=== PATIENT | male | born 1970 | race Caucasian/White ===

== ENCOUNTER → 2020-12-09 | Outpatient (CLI) | payer BC ==
[~2020-12-09] MED LIST: AMPDEX10; ARIPIPRAZOLE10 MG; ARIPIPRAZOLE20 MG PO; ATEN50 PO; Amphetamine Sal20 MG PO; Amphetamine Sal30 MG PO; BELPHEELB PO; Buspirone HCl15 MG PO; CAND16; CEPH500 PO; Clonazepam1 MG; Coumadin5 MG PO; DESV50 PO; DESVENLAFAXINE100 M3 PO; DOCU100 PO; FLUO20 PO; HYDROCHLOROTH12.5 MG PO; LEVSOD112 PO; LEVSOD175; LOSARTAN POTAS100 M1 PO; MAGNESIUM OXID500 MG PO; NEURONTIN300 MG PO; Norco 5-325 Ta1 EACH PO; OMEP20ER PO; OXYCODONE-ACET1 EAC2; OXYMORPHONE HCL5 MG; PERCOCET 10-321 EAC4 PO; POTCHL20ER PO; QUETIAPINE FUM100 MG PO; QUETIAPINE FUM300 MG; SYNTHROID PO; TAMSULOSIN HCL0.4 M1 PO; TOPI100 PO; Toprol Xl50 MG PO; VISBIOME 112.51 EACH PO; VITAMIN D5000 UNIT PO; Vistaril50 MG PO; Vitamin B-121000 MCG PO
[2020-12-09 11:34] LABS: BASOPHILS ABSOLUTE AUTO 0.08 K/mm3 (0.00-0.23); BASOPHILS PERCENT AUTO 0 % (0-2); Hematocrit 38.4 % (37.0-53.0); Hemoglobin 13.4 g/dL (13.5-17.5); LYMPHOCYTES PERCENT AUTO 4 % (21-46); MONOCYTES ABSOLUTE AUTO 2.18 K/mm3 (0.16-1.47); MONOCYTES PERCENT AUTO 9 % (4-13); Mean Corpuscular HGB 31.7 pg (26.0-34.0); Mean Corpuscular HGB Conc 34.9 g/dL (31.5-36.5); Mean Corpuscular Volume 91 fL (80-100); Mean Platelet Volume 10.7 fL (9.1-12.4); Platelet Count 322 K/mm3 (150-400); RDW Standard Deviation 46.4 fL (35.1-46.3); Red Blood Cell Count 4.23 M/mm3 (4.30-5.90); White Blood Cell Count 23.58 K/mm3 (4.00-11.30)
[2020-12-09 11:43] LABS: EOSINOPHILS ABSOLUTE AUTO 0.09 K/mm3 (0.00-0.68); EOSINOPHILS PERCENT AUTO 0 % (0-6); IMMATURE GRAN ABSOLUTE AUTO 1.15 K/mm3 (0.00-0.10); IMMATURE GRAN PERCENT AUTO 5 % (0-1); NEUTROPHILS ABSOLUTE AUTO 19.18 K/mm3 (1.96-9.15); NEUTROPHILS PERCENT AUTO 81 % (41-73)
[2020-12-09 11:59] LABS: Alanine Aminotransfer (ALT/SGP 31 U/L (12-78); Albumin, Blood 2.5 g/dL (3.4-5.0); Albumin/Globulin Ratio 0.5 (0.8-1.8); Alk Phos 46 U/L (40-126); Anion Gap 18 mmol/L (6-16); Aspartate Aminotrans (AST/SGOT 18 U/L (12-37); Bilirubin, Total 1.6 mg/dL (0.1-1.0); Blood Urea Nitrogen 18 mg/dL (8-24); Bun/Creatinine Ratio 7.1 (12.0-20.0); CO2, Blood 20 mmol/L (21-32); Calcium, Blood 9.1 mg/dL (8.5-10.1); Chloride, Blood 98 mmol/L (98-108); Creatinine, Blood 2.55 mg/dL (0.60-1.20); Globulin, Blood 4.8 g/dL (2.2-4.0); Glomerular Filtration Rate 27 (60-); Glucose, Blood 241 mg/dL (70-99); Potassium, Blood 3.3 mmol/L (3.5-5.5); Sodium, Blood 136 mmol/L (136-145); Thyroid Stimulating Hormone 4.808 uIU/mL (0.360-4.800); Total Protein, Blood 7.3 g/dL (6.4-8.2); Troponin I <0.017 ng/mL (0.000-0.040)
== END | disposition home or self-care (01) ==
LOC: LAB SHORT 10:39 → LAB EV 10:39
PROVIDERS: Physician Assistant
DX: L03.317 Cellulitis of buttock (principal); R00.0 Tachycardia, unspecified; R06.00 Dyspnea, unspecified
CPT/HCPCS: 80053; 83880; 84443; 84484; 85025; 85379; 87040; 87070; 87075; 87077; 87147; 87186; 87205

== ENCOUNTER 2020-12-10 00:42 | Inpatient (IN) | payer MEDICARE, BC ==
[~2020-12-10] VITALS: Ht 185.4 cm; Wt 171.1 kg
[~2020-12-10 00:42] MED LIST changes: -Amphetamine Sal20 MG PO; -Amphetamine Sal30 MG PO; -Buspirone HCl15 MG PO; -CEPH500 PO; -DESVENLAFAXINE100 M3 PO; -HYDROCHLOROTH12.5 MG PO; -MAGNESIUM OXID500 MG PO; -NEURONTIN300 MG PO; -OMEP20ER PO; -OXYCODONE-ACET1 EAC2; -PERCOCET 10-321 EAC4 PO; -POTCHL20ER PO; -SYNTHROID PO; -TAMSULOSIN HCL0.4 M1 PO; -TOPI100 PO; -Toprol Xl50 MG PO; -VISBIOME 112.51 EACH PO; -VITAMIN D5000 UNIT PO; -Vistaril50 MG PO; -Vitamin B-121000 MCG PO
[2020-12-10 02:11] LABS: BASOPHILS ABSOLUTE AUTO 0.15 K/mm3 (0.00-0.23); BASOPHILS PERCENT AUTO 1 % (0-2); Hematocrit 38.7 % (37.0-53.0); Hemoglobin 13.7 g/dL (13.5-17.5); LYMPHOCYTES ABSOLUTE AUTO 1.55 K/mm3 (0.84-5.20); LYMPHOCYTES PERCENT AUTO 6 % (21-46); MONOCYTES ABSOLUTE AUTO 2.41 K/mm3 (0.16-1.47); MONOCYTES PERCENT AUTO 9 % (4-13); Mean Corpuscular HGB 31.8 pg (26.0-34.0); Mean Corpuscular HGB Conc 35.4 g/dL (31.5-36.5); Mean Corpuscular Volume 90 fL (80-100); Mean Platelet Volume 10.7 fL (9.1-12.4); NRBC ABSOLUTE 0.03 K/mm3 (0.00-0.02); NRBC Auto 0.1 /100 WBC (0.0-0.2); Platelet Count 364 K/mm3 (150-400); RDW Standard Deviation 46.3 fL (35.1-46.3); Red Blood Cell Count 4.31 M/mm3 (4.30-5.90); White Blood Cell Count 25.98 K/mm3 (4.00-11.30)
[2020-12-10 02:12] LABS: EOSINOPHILS ABSOLUTE AUTO 0.02 K/mm3 (0.00-0.68); EOSINOPHILS PERCENT AUTO 0 % (0-6); IMMATURE GRAN ABSOLUTE AUTO 0.28 K/mm3 (0.00-0.10); IMMATURE GRAN PERCENT AUTO 1 % (0-1); NEUTROPHILS ABSOLUTE AUTO 21.57 K/mm3 (1.96-9.15); NEUTROPHILS PERCENT AUTO 83 % (41-73)
[2020-12-10] MEDS ORDERED: NEURONTIN300 MG PO ×2 (02:19)
[2020-12-10] MEDS ORDERED: OMEP20ER PO ×2 (02:20)
[2020-12-10] MEDS ORDERED: OXYCODONE-ACET1 EAC2 ×2 (02:20)
[2020-12-10] MEDS ORDERED: TOPI100 PO ×2 (02:21)
[2020-12-10] MEDS ORDERED: TAMSULOSIN HCL0.4 M1 PO ×2 (02:21)
[2020-12-10] MEDS ORDERED: Buspirone HCl15 MG PO ×2 (02:22)
[2020-12-10] MEDS ORDERED: Vistaril50 MG PO ×2 (02:22)
[2020-12-10] MEDS ORDERED: Toprol Xl50 MG PO ×2 (02:23)
[2020-12-10 02:32] LABS: Alanine Aminotransfer (ALT/SGP 28 U/L (12-78); Albumin, Blood 2.5 g/dL (3.4-5.0); Albumin/Globulin Ratio 0.4 (0.8-1.8); Alk Phos 54 U/L (50-136); Anion Gap 12 mmol/L (6-16); Aspartate Aminotrans (AST/SGOT 22 U/L (12-37); Bilirubin, Total 0.9 mg/dL (0.1-1.0); Blood Urea Nitrogen 31 mg/dL (8-24); Bun/Creatinine Ratio 7.9 (12.0-20.0); CO2, Blood 20 mmol/L (21-32); Calcium, Blood 8.6 mg/dL (8.5-10.1); Chloride, Blood 101 mmol/L (98-108); Creatinine, Blood 3.92 mg/dL (0.60-1.20); Globulin, Blood 5.6 g/dL (2.2-4.0); Glomerular Filtration Rate 18 (60-); Glucose, Blood 157 mg/dL (70-99); Potassium, Blood 3.3 mmol/L (3.5-5.5); Sodium, Blood 133 mmol/L (136-145); Total Protein, Blood 8.1 g/dL (6.4-8.2); Troponin I <0.015 ng/mL (0.000-0.040)
[2020-12-10 02:37] LABS: BAND PERCENT MAN 7 % (0-8); BASOPHILS PERCENT MAN 0 % (0-2); EOSINOPHILS PERCENT MAN 0 % (0-6); LYMPHOCYTES ABSOLUTE MAN 2.07 K/mm3 (0.84-5.20); LYMPHOCYTES PERCENT MAN 8 % (21-46); METAMYELOCYTE ABSOLUTE MAN 0.51 K/mm3 (0.00-0.00); METAMYELOCYTE PERCENT MAN 2 % (0-0); MONOCYTES ABSOLUTE MAN 1.81 K/mm3 (0.16-1.47); MONOCYTES PERCENT MAN 7 % (4-13); NEUTROPHILS ABSOLUTE MAN 21.56 K/mm3 (1.96-9.15); SEG NEUTROPHILS PERCENT MAN 76 % (41-73); TOTAL CELLS COUNTED 100
[2020-12-10 03:00] LABS: International Normalized Ratio 1.21; Prothrombin Time Results 12.8 Sec (9.7-11.5)
[2020-12-10 04:28] LABS: CPK Creatine Kinase 118 U/L (39-308); Free Thyroxine 1.79 ng/dL (0.70-1.60)
--- NOTE | 2020-12-10 06:30 | NUR ---
PT TO ICU ROOM 7 AT 0610. PT INTUBATED AND SEDATED (NOT WELL). PT MOVED TO ICU BED. EXCESS LINENS REMOVED, WOUND TO LEFT BUTTOCK PHOTOGRAPHED. PT HAD MEDIUM BM, PERICARE DONE, DRY FLOW PLACED. PT HAS CL TO RIGHT IJ WITH MULT MEDS INFUSING. DRESSING LOOSE AND MOIST, SITE WNL. PT HAS VANCO INFUSING, PROPOFOL AT 20MCG/KG (INCREASED TO 40MCG/KG), NS BOLUS VIA PRESSURE BAG, HEPARIN @ 16/UNITS/HR, BICARB AT 100ML/HR, LEVO AVAIL FOR HYPOTENSION. MULT SCAB TO SKIN. TEMP BAINS DRAINING URINE. BILATERAL SOFT WRIST RESTRAINTS SECURE. SL TO RIGHT AC. VENT SETTINGS AC14/500/5/60. WILL REPORT TO ONCOMING SHIFT.
--- NOTE | 2020-12-10 07:10 | NUR ---
ASSUMED CARE FROM [facility]. AT BEDSIDE. PT ON VENTILATOR AC 14/500/5/60%. RT-JUAN ANTONIO IN ROOM. CENTRAL LINE WITH LEVOPHED INFUSING, PROPOFOL AND HEPARIN. SEE FLOW SHEET FOR TITRATIONS. SODIUM BICARB AT 100ML/HR. BOLUS NS INFUSING IN RIGHT AC. PATIENT SKIN MOIST/DIAPHORETIC. PT EASILY AGITATED, PROPOFOL TITRATE BAINS DRAINING TO GRAVITY, OG TO LIS WITH NO VISIBLE OUTPUT. FEET WITHOUT PALPABLE PULSES BUT WARM TO THE TOUCH AND GOOD CAP REFILL. WOUNDS NOTED TO LOWER ABDOMEN/UPPER PANNUS. THIGHS WITH BLISTER/ACNE. WILL COMPLETE ADMISSION ASSESSMENT AND TREAT PATIENT INDICATED.
[2020-12-10] MEDS ORDERED: LEVSOD112 PO ×2 (07:22)
--- NOTE | 2020-12-10 08:30 | NUR ---
HERE TO SEE PT. PT TURNED VIEWED BUTTOCKS WOUND. RED/ANGRY/SEEPING PINK TINGED RETURN, EDEMA THROUGHOUT REGION SURROUNDING THE AREA.
[2020-12-10 08:45] LABS: Source, Urine Catheter
[2020-12-10 08:48] LABS: Appearance, Urine Cloudy (Clear); Bilirubin, Urine Neg (Neg); Blood, Urine 4+ (Neg); Color, Urine Yellow (P-Yellow); Glucose Qualitative, Urine Neg (Neg); Ketones, Urine Neg (Neg); Leukocyte Esterase, Urine Neg (Neg); Nitrite, Urine Neg (Neg); Protein, Urine 3+ (Neg); Specific Gravity, Urine 1.015 (1.003-1.022); Urobilinogen, Urine NORM (Normal)
[2020-12-10 08:56] LABS: Squamous Epithelial Cells Few /hpf (Few); White Blood Cells, Urine 0-2 /hpf (0-5)
[2020-12-10 08:57] LABS: Amorphous Mod (0-Heavy); Bacteria Few /hpf
--- NOTE | 2020-12-10 09:00 | NUR ---
HERE, ASSESSING PT, FURTHER ORDERS OBTAINED. PT UP TO LEVOPHED 20MCG PER KG TO KEEP MAP>60, BP ASSESSED ON ALL LIMBS WITH .
[2020-12-10 09:49] LABS: Base Excess Venous -10.4 mmol/L; Bicarbonate Venous 16.5 mmol/L (24.0-30.0); PCO2 Venous 40.5 mmHg (38-42); PO2 Venous 75.9 mmHg (38-42)
[2020-12-10 09:50] LABS: pH Blood Venous 7.23 (7.34-7.37)
--- NOTE | 2020-12-10 11:00 | NUR ---
HERE, PREPARING TO DO I&D OF LEFT GLUTEAL FOLD WOUND. ECHO BEING FINISHED. PT MEDICATED AND TURNED WITH 4 PERSON ASSIST. PERFORMED I&D OF WOUND, CULTURE OBTAINED. PT TOLERATED PROCEDURE WELL.
--- NOTE | 2020-12-10 12:33 | NUR ---
HAVING A HARD TIME GETTING AN ADEQUATE BLOOD PRESSURE SINCE THE PROCEDURE. PT TITRATED UP ON LEVO AND EPINEPHRINE. MEDICATED WITH FENTANYL, EFFORTS TO DECREASE PROPOFOL BUT PT VERY AGITATED, TRYING TO TALK OVER THE ETT, PULLING AT RESTRAINTS, BREATHING RAPIDLY, ATTEMPTS TO REASSURE PATIENT. PROPOFOL BACK ON AT 40MCG/KG/MIN, FENTANYL GIVEN AGAIN PER NOV. VERBAL REASSURANCE GIVEN. PT CONTINUES TO BE SIGNIFICANTLY DIAPHORETIC, CENTRAL LINE DRESSING CHANGED. STAT LOCK REPLACED FOR BAINS. GOWN REMOVED AND TOWEL PLACED FOR MODESTY.
--- NOTE | 2020-12-10 12:50 | NUR ---
ECHOCARDIOGRAM COMPLETED
--- NOTE | 2020-12-10 13:00 | NUR ---
ATTEMPT TO PLACE ARTERIAL LINE IN THE RIGHT GROIN UNSUCCESSFUL. PT TOLERATED WELL, AFTER RECEIVING 2 MG VERSED AND PRECEDEX GTT STARTED.
--- NOTE | 2020-12-10 14:19 | NUR ---
WHEN PT OFF SEDATION, VERY AGITATED, BUT ANSWERS APPROPRIATELY. DID NOD THAT HIS BUTTOCKS WAS HURTING AND ALSO THAT HIS BACK WAS HURTING. ATTEMPTING TO CALM AND REASSURE IS NOT WELL RECEIVED, THUS NEEDING THE MEDICATION.
[2020-12-10 15:08] LABS: Bicarbonate Venous 15.3 mmol/L (24.0-30.0); PCO2 Venous 39.9 mmHg (38-42); PO2 Venous 50.4 mmHg (38-42); pH Blood Venous 7.21 (7.34-7.37)
--- NOTE | 2020-12-10 16:15 | NUR ---
IN TO SEE PATIENT, RECHECK WOUND. PT'S LEFT LEG RAISED AND WOUND INSPECTED. PATIENT UNCOMFORTABLE AND MEDICATED WITH FENTANYL 50MCG.
--- NOTE | 2020-12-10 17:44 | NUR ---
KASEY CONTINUES ON THE VENTILATOR, SPONTANEOUS SETTING. 40% FIO2. VASOPRESSIN @ 0.04U/MIN, PRECEDEX @ 0.7MCG/KG/HR, LEVOPHED @ 20MCG/MIN, EPINEPHRINE ON SB, PROPOFOL @ 30MCG/KG/MIN, NS @ 150ML/HR, NAHCO3 @ 150ML/HR, CALCIUM GLUCONATE @ 60ML/HR, ZOSYN @ 12.5ML/HR. OG TO LIS WITH NO VISIBLE OUTPUT, BAINS TO GRAVITY DRAINAGE WITH <300ML THIS SHIFT, AWARE. LOWER EXTREMITIES COOL, CAP REFILL <3 SEC. PT CONTINUES WITH 99.7 TEMP PER BAINS AND EPISODES OF SEVERE DIAPHORESIS. HAS BEEN WITH HIM THE LAST COUPLE OF HOURS, HE RESTS WELL BETWEEN BEING BOTHERED. GLUTEAL WOUND CONTINUES WITH GAUZE IN PLACE, TO BE CHANGED THIS EVENING AROUND 2330. ABDOMINAL WOUNDS UNCHANGED. WILL REPORT TO NEXT SHIFT WHEN ABLE.
--- NOTE | 2020-12-10 19:30 | NUR ---
ASSUMED PT CARE REPORT AND BEDSIDE ROUNDING WITH ANDREW CANALES AT 1910, ASSUMED PT CARE. PT REMAINS INTUBATED AND SEDATED, RESPONSIVE TO SOME VERBAL STIMULI. PT HAS CENTRAL LINE TO RIGHT IJ WITH LEVOPHED INF @ 20MCG, PROPOFOL @ 35MCG, VASO @ 0.04, BICARB @ 150, NS @ 150. PT HAS 20G SL TO RIGH AC, SITE WNL, DRESSING C/D/I. OG TO LIS, MINIMAL OUTPUT. LUNG SOUNDS CLEAR/DIMINISHED. VENT SPONTANEOUS RATE 20/500/5/40. T.BAINS DRAINING BANG COLORED URINE. BILATERAL SOFT WRIST RESTRAINTS SECURE. PT SKIN DIAPHORETIC, DRESSING TO LEFT BUTTOCK I&D TODAY, DRESSING INTACT. SORES TO ABD. SEE FULL SHIFT ASSESSMENT.
[2020-12-10 20:15] LABS: Bicarbonate Venous 16.6 mmol/L (24.0-30.0); PCO2 Venous 36.8 mmHg (38-42); PO2 Venous 44.2 mmHg (38-42); pH Blood Venous 7.27 (7.34-7.37)
[2020-12-10 20:16] LABS: Base Excess Venous -10.2 mmol/L
[2020-12-11 04:30] LABS: Base Excess Venous -6.8 mmol/L; Bicarbonate Venous 18.9 mmol/L (24.0-30.0); PCO2 Venous 39.1 mmHg (38-42); pH Blood Venous 7.31 (7.34-7.37)
[2020-12-11 04:38] LABS: BASOPHILS ABSOLUTE AUTO 0.09 K/mm3 (0.00-0.23); BASOPHILS PERCENT AUTO 0 % (0-2); EOSINOPHILS PERCENT AUTO 0 % (0-6); Hematocrit 32.6 % (37.0-53.0); Hemoglobin 11.2 g/dL (13.5-17.5); IMMATURE GRAN ABSOLUTE AUTO 0.46 K/mm3 (0.00-0.10); IMMATURE GRAN PERCENT AUTO 2 % (0-1); LYMPHOCYTES ABSOLUTE AUTO 0.67 K/mm3 (0.84-5.20); LYMPHOCYTES PERCENT AUTO 3 % (21-46); MONOCYTES ABSOLUTE AUTO 2.18 K/mm3 (0.16-1.47); MONOCYTES PERCENT AUTO 9 % (4-13); Mean Corpuscular HGB 31.8 pg (26.0-34.0); Mean Corpuscular HGB Conc 34.4 g/dL (31.5-36.5); Mean Corpuscular Volume 93 fL (80-100); Mean Platelet Volume 10.5 fL (9.1-12.4); NEUTROPHILS ABSOLUTE AUTO 19.76 K/mm3 (1.96-9.15); NEUTROPHILS PERCENT AUTO 85 % (41-73); NRBC ABSOLUTE 0.03 K/mm3 (0.00-0.02); NRBC Auto 0.1 /100 WBC (0.0-0.2); Platelet Count 351 K/mm3 (150-400); RDW Coefficient Variation 14.9 % (11.7-14.2); RDW Standard Deviation 50.7 fL (35.1-46.3); Red Blood Cell Count 3.52 M/mm3 (4.30-5.90); White Blood Cell Count 23.16 K/mm3 (4.00-11.30)
[2020-12-11 04:58] LABS: Alanine Aminotransfer (ALT/SGP 36 U/L (12-78); Albumin, Blood 1.9 g/dL (3.4-5.0); Albumin/Globulin Ratio 0.4 (0.8-1.8); Alk Phos 50 U/L (50-136); Anion Gap 14 mmol/L (6-16); Aspartate Aminotrans (AST/SGOT 46 U/L (12-37); Bilirubin, Total 0.7 mg/dL (0.1-1.0); Blood Urea Nitrogen 37 mg/dL (8-24); Bun/Creatinine Ratio 7.8 (12.0-20.0); CO2, Blood 19 mmol/L (21-32); Calcium, Blood 6.7 mg/dL (8.5-10.1); Chloride, Blood 102 mmol/L (98-108); Creatinine, Blood 4.74 mg/dL (0.60-1.20); Globulin, Blood 4.4 g/dL (2.2-4.0); Glomerular Filtration Rate 14 (60-); Glucose, Blood 312 mg/dL (70-99); Magnesium, Blood 1.7 mg/dL (1.6-2.4); Phosphorus, Blood 4.2 mg/dL (2.5-4.9); Potassium, Blood 3.5 mmol/L (3.5-5.5); Sodium, Blood 135 mmol/L (136-145); Total Protein, Blood 6.3 g/dL (6.4-8.2); Vancomycin, Random 15.8 ug/mL
--- NOTE | 2020-12-11 06:28 | NUR ---
SHIFT SUMMARY PT REMAINS INTUBATED AND SEDATED. WAKES TO NOXIOUS STIMULI AND OFTEN WAKES WITH NO STIMULI. PT HAS CENTRAL LINE TO RIGHT IJ WITH PRECEDEX INF @ 0.7MCG, PROPOFOL INF @ 55MCG, LEVOPHED INF @ 5MCG, NS INF @ KVO, BICARB INF @ 150. SITE WNL, DRESSING C/D/I AFTER CHANGING IT THIS AM. SL 20G TO RIGHT AC, SITE WNL, DRESSING C/D AND LOOSE DUE TO DIAPHORESIS. TEMP BAINS DRAINGING BANG COLORED URINE. SOFT BILATERAL WRIST RESTRAINTS SECURE. OG CLAMPED POST MEDICATIONS. PT TOLERATING VENT SETTINGS SPONTANEOUS PS 12, PEEP 5, 30% FIO2. SATS >92%. WOUND PACKING REMOVED AROUND 2330 DURING BEDBATH, AREA CLEANED, SALINE MOIST GAUZE PLACED TO WOUND, ABD IN PLACE. WILL REPORT TO ONCOMING RN.
--- NOTE | 2020-12-11 18:29 | NUR ---
KASEY HAS CONTINUED ON SPONTANEOUS ON THE VENTILATOR. HE HAS DECREASED TO 8 PS AND IS ON 30% FI02. HE HAS BEEN OFF OF PRESSORS SINCE 1454. HE CONTINUES ON PRECEDEX, INCREASED TO 1.4MCG/KG/HR. PROPOFOL AT 50MCG/KG/MIN. HE HAS HAD MOMENTS OF COMPLETE ALERTNESS, WHERE HE SITS UP IN THE BED AND MOVES HIS LEGS, PULLS AT THE RESTRAINTS. HE CALMS WITH VOICE REASSURANCE AND OCCASIONAL FENTANYL DOSES. HE WILL THEN BE TOTALLY UNAROUSABLE TO VOICE. HE ANSWERS WITH HEAD NODS AND SHAKES WHEN HE HAS THESE MOMENTS OF ALERTNESS. WAS HERE FOR VISITATION, ENCOURAGED BY 'S PROGRESS REPORT TO HER. HE WAS STARTED ON TUBE FEEDINGS VIA OG WITH VITAL HIGH PROTEIN @ 25ML/HR. HIS FIRST RESIDUAL CHECK WAS ZERO. HE HAD GOOD URINE OUTPUT THIS SHIFT. TEMPERATURE HAS REMAINED ELEVATED ALL THROUGHOUT THE SHIFT, HE WAS MEDICATED X 2 WITH TYLENOL. HE IS STARTING TO GET PUFFY IN THE HANDS/LOWER EXTREMITIES. WILL CONTINUE TO ASSESS.
--- NOTE | 2020-12-11 20:44 | NUR ---
CARE ASSUMED 1900 Pt intubated and sedated. Propofol 50 MCG/KG/MIN and Precedex 1.4 MCG/KG/HR infusing via central line to RIJ. Pt moves all extrems and has period of increased agitation during oral/turns. Pulling on restraints and attempting to situp in bed, treated per emar. Unable to be calmed with verbal reassurance. Pt unable to follow commands at this time. Vent settings of PS 10/5, FIO2 30%, SPO2 > 90%. Small amount of thick white secreations from oral suctioning. Tube feed at goal of 25 ml/hr, residual of 0. Temp thorpe in place, draining to gravity, 100 ml of yellow/cloudy urine. NSR. Pt has elevated temp 102.7, fan and ice packs in place, will treat per emar.
[2020-12-12 03:41] LABS: BASOPHILS ABSOLUTE AUTO 0.04 K/mm3 (0.00-0.23); BASOPHILS PERCENT AUTO 0 % (0-2); EOSINOPHILS PERCENT AUTO 0 % (0-6); Hematocrit 31.7 % (37.0-53.0); Hemoglobin 10.8 g/dL (13.5-17.5); IMMATURE GRAN ABSOLUTE AUTO 0.92 K/mm3 (0.00-0.10); IMMATURE GRAN PERCENT AUTO 5 % (0-1); LYMPHOCYTES ABSOLUTE AUTO 1.41 K/mm3 (0.84-5.20); LYMPHOCYTES PERCENT AUTO 8 % (21-46); MONOCYTES PERCENT AUTO 7 % (4-13); Mean Corpuscular HGB 32.1 pg (26.0-34.0); Mean Corpuscular HGB Conc 34.1 g/dL (31.5-36.5); Mean Corpuscular Volume 94 fL (80-100); Mean Platelet Volume 10.8 fL (9.1-12.4); NEUTROPHILS ABSOLUTE AUTO 15.24 K/mm3 (1.96-9.15); NEUTROPHILS PERCENT AUTO 81 % (41-73); NRBC ABSOLUTE 0.03 K/mm3 (0.00-0.02); NRBC Auto 0.2 /100 WBC (0.0-0.2); Platelet Count 311 K/mm3 (150-400); RDW Coefficient Variation 14.7 % (11.7-14.2); RDW Standard Deviation 51.2 fL (35.1-46.3); Red Blood Cell Count 3.36 M/mm3 (4.30-5.90); White Blood Cell Count 18.91 K/mm3 (4.00-11.30)
--- NOTE | 2020-12-12 03:57 | NUR ---
Update- Increased agitation Patient with periods of increased agitation, pulling on restraints, attempting to sit-up in bed, and "chewing" on tube. Attempted to reorient patient without success. Patient opens eyes but not tracking or following commands. Moving all extrems. Treated per emar and Precedex and Propofol titrated as well. Increased RR (30-40's) and SPO2 decreased to 86% (100% FIO2 given via vent and oral care provided) during periods of agitation. Unable to decrease sedation due to increased agitation. During 0 patient treated with Sublimaze 50 mcg prior to dressing change- L gluteal dressing change complete, sterile 4X4 moistened with normal saline packing placed in wound bed. Secured in place with foam dressing.
[2020-12-12 04:01] LABS: Anion Gap 11 mmol/L (6-16); Blood Urea Nitrogen 54 mg/dL (8-24); Bun/Creatinine Ratio 9.6 (12.0-20.0); CO2, Blood 22 mmol/L (21-32); Calcium, Blood 6.8 mg/dL (8.5-10.1); Chloride, Blood 102 mmol/L (98-108); Creatinine, Blood 5.65 mg/dL (0.60-1.20); Glomerular Filtration Rate 11 (60-); Glucose, Blood 232 mg/dL (70-99); Magnesium, Blood 2.5 mg/dL (1.6-2.4); Phosphorus, Blood 5.7 mg/dL (2.5-4.9); Potassium, Blood 3.5 mmol/L (3.5-5.5); Sodium, Blood 135 mmol/L (136-145); Vancomycin, Random 22.9 ug/mL
--- NOTE | 2020-12-12 05:14 | NUR ---
Shift Summary Pt intubated and sedated. Propofol GTT 60 mcg/kg/min and Precedex 1.3 mcg/kg/hr. Pt easily agitated and unable to follow commands. Opens eyes and moves all extrems but not tracking. Vent settings PS 10/5, FIO2 40%, SPO2 > 90%. Continues to have small thick white secreations. L gluteal wound dressing C/D/I. Temp thorpe (102 TEMP) in place draining to gravity, 500 ml of dark cloudy yellow urine. NSR. Will report to oncomign shift.
--- NOTE | 2020-12-12 08:23 | NUR ---
CARE OF PT ASSUMED AT 0700. PT SEDATED ON PROPOFOL AT 60MCG AND PRECEDEX AT 1.3MCG FOR MECH VENT. SPONT/PS10/40%/5. SATS>90%. LUNGS CLEAR T/O, DIMINISHED TO BASES. PT GRIMACES W NOXIOUS TIMULI/ORAL CARE. SMALL AMT OF ESPINOSA SPUTUM SX'D FROM ETT. TF IS AT GOAL; NO RESIDUALS. PT CREATINE HAS INCREASED, PT MAKING SUFFICIANT U/O. BP IS STABLE, SLIGHTLY HYPOTENSIVE AT TIMES W MAP >65.
--- NOTE | 2020-12-12 09:31 | NUR ---
DR FLORENCE IN TO SEE PT. DRSG TO LEFT GLUTEAL BY DR FLORENCE. PT DOES NOT REQUIRE FURTHER DEBRIDEMENT AT THIS TIME PER AYO DONALDSON TO BE CHANGED DAILY. WOUND TO BE PACKED WITH ALGENATE (WHOLE PACKAGE) AND COVERED W CLOVER. GREEN SHEET CHANGED, BACK WASHED. DR AGUIAR GIVEN UPDATE. TYLENOL GIVEN FOR TEMP 102.0
--- NOTE | 2020-12-12 10:49 | NUR ---
PROPOFOL DECREASED TO 50MCG, WITHIN MINUTES PT WOKE UP AND SAT UP PARTIALLY IN BED. PT DID NOT FOLLOW DIRECTIONS. RESP INCREASED TO HIGH 40'S AND SATS DROPPED TO 89%. AFTER 5 ADDITIONAL MIN. PT FELL BACK TO SLEEP, RESP AND SATS IMPROVED.
--- NOTE | 2020-12-12 12:44 | NUR ---
PT DIAPHORETIC, TEMP DOWN TO 101.3 FROM 102. RESP 30-40, PT'S EYES OPENED FURTHER (TYPICALLY ALWAYS SLIGHTLY OPEN D/T GRAVES DISEASE ISSUES), PT COUGHING ON VENT. FENT 50MCG GIVEN. PROPOFOL THEN DECREASED TO 45MCG FROM 50MCG. PRECEDEX REMAINS AT 1.4MCG. GOLD LIKE RING REMOVED FROM LEFT RING FINGER HAND IS VERY SWOLLEN. RING PLACED IN SPEC. CUP; WILL GIVE TO . NEPHROLOGY TO BE CONSULTED. NO OTHER CHANGES FROM LAST ASSESSMENT.
--- NOTE | 2020-12-12 14:41 | NUR ---
PT'S AT BEDSIDE, GIVEN PT'S RING, GIVEN UPDATE
--- NOTE | 2020-12-12 15:07 | NUR ---
DR ALTAMIRANO IN TO SEE PT, FULL UPDATE GIVEN. PRECEDEX TO BE TITRATED OFF IF TOLERATED. PRECEDEX DECREASED TO 0.6MCG. DR ALTAMIRANO UPDATED PT'S .
--- NOTE | 2020-12-12 15:44 | NUR ---
PT MORE AWAKE SINCE PRECEDEX DECREASED. PT MORE RESTLESS, RESP RATE INCREASED TO 40'S, ABLE TO CALM PT SOMEWHAT WITH VERBAL SOOTHING FROM . PT UNABLE TO FOLLOW SIMPLE COMMANDS.
[2020-12-12 16:24] LABS: Source, Urine Catheter
[2020-12-12 16:30] LABS: Bilirubin, Urine Neg (Neg); Blood, Urine 5+ (Neg); Glucose Qualitative, Urine Neg (Neg); Ketones, Urine Neg (Neg); Leukocyte Esterase, Urine Neg (Neg); Nitrite, Urine Neg (Neg); Protein, Urine 2+ (Neg); Specific Gravity, Urine 1.015 (1.003-1.022); Urobilinogen, Urine NORM (Normal)
[2020-12-12 16:37] LABS: Appearance, Urine Hazy (Clear); Color, Urine Yellow (P-Yellow)
[2020-12-12 16:37] LABS: Albumin, Blood 1.8 g/dL (3.4-5.0); Anion Gap 14 mmol/L (6-16); Blood Urea Nitrogen 60 mg/dL (8-24); Bun/Creatinine Ratio 10.4 (12.0-20.0); CO2, Blood 20 mmol/L (21-32); Calcium, Blood 6.9 mg/dL (8.5-10.1); Chloride, Blood 102 mmol/L (98-108); Creatinine, Blood 5.75 mg/dL (0.60-1.20); Glomerular Filtration Rate 11 (60-); Glucose, Blood 225 mg/dL (70-99); Phosphorus, Blood 6.8 mg/dL (2.5-4.9); Potassium, Blood 3.4 mmol/L (3.5-5.5); Sodium, Blood 136 mmol/L (136-145)
[2020-12-12 16:39] LABS: Amorphous Mod (0-Heavy); Bacteria Mod /hpf; Squamous Epithelial Cells Few /hpf (Few)
[2020-12-12 16:40] LABS: Granular Casts 0-2 /lpf (0)
--- NOTE | 2020-12-12 17:52 | NUR ---
PT MORE AWAKE; ABLE TO FOLLOW SIMPLE COMMANDS AND NODS HEAD APPROPRIATELY TO QUESTIONS. NODS YES TO PAIN. PRECEDEX PLACED ON STANDBY. PT COUGHING/GAGING ON VENT. ATIVAN 2MG /FENT 50MCG GIVEN FOR ANXIETY AND PAIN. PT HAD GOOD U/O TODAY/1250CC. CALL PLACED TO DR URIAS TO GIVE LAB RESULTS; SHE IS TO CALL BACK. CA CL 2GM GIVEN PER DR ALTAMIRANO.
--- NOTE | 2020-12-12 21:19 | NUR ---
Assumed Care 1900 Pt intubated and sedated. Propofol increased to 55 mcg/kg/min. Pt with increased agitation during care, coughing, grimacing, and unable to follow commands. Pt hypertensive at this time, see flow sheet. Treated per emar with Ativan as well. Vent settings PS 10/5, FIO2 35%, SPO2 > 90%. TF at goal, no residual. Polanco draining to gravity, yellow/clear urine. NSR.
--- NOTE | 2020-12-13 00:06 | NUR ---
Provider Call Dr. Sarmiento called in regards to patients elevated SBP (180's). New orders recieved to start patients home hypertension mediation, see emar.
[2020-12-13 03:28] LABS: BASOPHILS ABSOLUTE AUTO 0.07 K/mm3 (0.00-0.23); BASOPHILS PERCENT AUTO 1 % (0-2); EOSINOPHILS ABSOLUTE AUTO 0.02 K/mm3 (0.00-0.68); EOSINOPHILS PERCENT AUTO 0 % (0-6); Hematocrit 31.1 % (37.0-53.0); Hemoglobin 10.5 g/dL (13.5-17.5); IMMATURE GRAN ABSOLUTE AUTO 1.18 K/mm3 (0.00-0.10); IMMATURE GRAN PERCENT AUTO 8 % (0-1); LYMPHOCYTES ABSOLUTE AUTO 0.99 K/mm3 (0.84-5.20); LYMPHOCYTES PERCENT AUTO 7 % (21-46); MONOCYTES ABSOLUTE AUTO 1.15 K/mm3 (0.16-1.47); MONOCYTES PERCENT AUTO 8 % (4-13); Mean Corpuscular HGB 31.3 pg (26.0-34.0); Mean Corpuscular HGB Conc 33.8 g/dL (31.5-36.5); Mean Corpuscular Volume 93 fL (80-100); Mean Platelet Volume 10.5 fL (9.1-12.4); NEUTROPHILS ABSOLUTE AUTO 11.11 K/mm3 (1.96-9.15); NEUTROPHILS PERCENT AUTO 77 % (41-73); Platelet Count 327 K/mm3 (150-400); RDW Coefficient Variation 14.5 % (11.7-14.2); RDW Standard Deviation 49.1 fL (35.1-46.3); Red Blood Cell Count 3.35 M/mm3 (4.30-5.90); White Blood Cell Count 14.52 K/mm3 (4.00-11.30)
[2020-12-13 03:48] LABS: Alanine Aminotransfer (ALT/SGP 49 U/L (12-78); Albumin, Blood 1.7 g/dL (3.4-5.0); Albumin/Globulin Ratio 0.4 (0.8-1.8); Alk Phos 43 U/L (50-136); Anion Gap 12 mmol/L (6-16); Aspartate Aminotrans (AST/SGOT 70 U/L (12-37); Bilirubin, Total 0.6 mg/dL (0.1-1.0); Blood Urea Nitrogen 66 mg/dL (8-24); Bun/Creatinine Ratio 11.3 (12.0-20.0); CO2, Blood 23 mmol/L (21-32); Calcium, Blood 7.7 mg/dL (8.5-10.1); Chloride, Blood 105 mmol/L (98-108); Creatinine, Blood 5.83 mg/dL (0.60-1.20); Globulin, Blood 4.4 g/dL (2.2-4.0); Glomerular Filtration Rate 11 (60-); Glucose, Blood 199 mg/dL (70-99); Magnesium, Blood 2.5 mg/dL (1.6-2.4); Phosphorus, Blood 7.2 mg/dL (2.5-4.9); Potassium, Blood 3.1 mmol/L (3.5-5.5); Sodium, Blood 140 mmol/L (136-145); Total Protein, Blood 6.1 g/dL (6.4-8.2); Vancomycin, Random 17.2 ug/mL
[2020-12-13 03:55] LABS: BAND PERCENT MAN 10 % (0-8); BASOPHILS PERCENT MAN 0 % (0-2); EOSINOPHILS PERCENT MAN 0 % (0-6); LYMPHOCYTES ABSOLUTE MAN 0.14 K/mm3 (0.84-5.20); LYMPHOCYTES PERCENT MAN 1 % (21-46); METAMYELOCYTE ABSOLUTE MAN 0.43 K/mm3 (0.00-0.00); METAMYELOCYTE PERCENT MAN 3 % (0-0); MONOCYTES ABSOLUTE MAN 0.87 K/mm3 (0.16-1.47); MONOCYTES PERCENT MAN 6 % (4-13); NEUTROPHILS ABSOLUTE MAN 13.06 K/mm3 (1.96-9.15); SEG NEUTROPHILS PERCENT MAN 80 % (41-73); TOTAL CELLS COUNTED 100
--- NOTE | 2020-12-13 05:21 | NUR ---
Sedation Vacation Patients Propofol titerated to 35 mcg/kg/min. Pt able to follow commands, squeezes hands (strong plug grower bilaterally), attempting to open eyes. Unable to nod head yes/no to simple questions. Increased SBP 190'S and RR 20's, HR 89-90's, Pt grimacing and coughing. Thick white oral secreations and thick valenzuela secreations from ETT suction. Propofol restarted.
[2020-12-13 05:24] LABS: PCO2 Arterial 40.9 mmHg (35-45); PO2 Arterial 77.4 mmHg (80-100); pH Blood Arterial 7.32 (7.35-7.45)
--- NOTE | 2020-12-13 05:57 | NUR ---
Shift Summary Pt sedated with Propofol 55 mcg/kg/min, infusing via CL in RIJ. Vent settings of PS 10/5, 30%, SPO2 > 90%. Pt grimaces when care is provided. Pt continues to be hypertensive, SBP 150-170'S, treated per emar. TF at goal, 0 of resiudal. Temp thorpe in place, draining to gravity, (2200 urine output, yellow/clear). NSR. Will report to oncoming shift. K (3.1) replaced per electrolyte protocol.
--- NOTE | 2020-12-13 09:22 | NUR ---
PT SEDATED ON PROPOFOL AT 55MCG FOR MECH VENT. PRECEDEX HAS BEEN OFF SINCE YESTERDAY. PT GRIMACES W ORAL CARE, MARISCAL. LUNGS SLIGHTLY COARSE TO RUL. PT HAS INCREASED SECRETIONS TODAY FROM ETT; THICK, CREAM TO ESPINOSA. INCREASED ORAL SECRETIONS WELL. PT HAD VERY LARGE BM, DURING TURN PT DESATURATED TO 80%, IT TOOK PT ABOUT 7MIN TO RECOVER SATS >90% ON 100% FIO2. FIO2 NOW AT 30%. SATS 91%. DRSG TO LEFT GLUTEAL WOUND CHANGED. SKIN AREA AROUND WOUND PEELING. PT TOLERATING TUBE FEEDINGS;NO RESIDUAL. U/O REMAINS GOOD DESPITE HIGH CREATINE. DR Chung AGUIAR AND DR Damian AGUIAR IN TO SEE PT THIS AM; FULL UPDATE GIVEN. PT RECEIVING 2ND BAG OF K+; K+ LAB TO BE REPEATED 4 HRS AFTER BAG INFUSED. PT RECIEVING VANCO THIS AM. PT TEMP MUCH IMPROVED TODAY AT 99.0. PT HYPERTENSIVE. LOPRESSOR 25MG DOWN PT STARTED.
--- NOTE | 2020-12-13 10:52 | NUR ---
DR ALTAMIRANO IN TO SEE PT; FULL UPDATE GIVEN. SPUTUM TO BE SENT. PROPOFOL DECREASED TO 35MCG TO START SED VAC. PT WILL REMAIN INTUBATED TODAY PER DR ALTAMIRANO.
--- NOTE | 2020-12-13 11:25 | NUR ---
PROPOFOL DECREASED TO 10MCG. PT WOKE UP WITHIN 5MIN. RESP 40'S, HYPERTENSIVE W SBP >180. PT CALM, ABLE TO INTENSIVE CARE NURSE HAND TO COMMAND. ABLE TO NOD HIS HEAD APPROPRIATELY TO QUESTIONS. DENIES C/O PAIN AT THIS TIME. CENTRAL LINE DRSG CHANGED TO RIJ. PROPOFOL RESUMED AT 40MCG.
--- NOTE | 2020-12-13 12:28 | NUR ---
IVY ORDERED Q6 FOR HTN.
--- NOTE | 2020-12-13 14:13 | NUR ---
DR URIAS IN TO SEE PT. RP SENT TO LAB. PT'S AT BEDSIDE; FULL UPDATE GIVEN.
[2020-12-13 14:48] LABS: Albumin, Blood 1.8 g/dL (3.4-5.0); Anion Gap 12 mmol/L (6-16); Blood Urea Nitrogen 69 mg/dL (8-24); Bun/Creatinine Ratio 12.7 (12.0-20.0); CO2, Blood 22 mmol/L (21-32); Calcium, Blood 7.9 mg/dL (8.5-10.1); Chloride, Blood 107 mmol/L (98-108); Creatinine, Blood 5.42 mg/dL (0.60-1.20); Glomerular Filtration Rate 12 (60-); Glucose, Blood 216 mg/dL (70-99); Phosphorus, Blood 6.6 mg/dL (2.5-4.9); Potassium, Blood 3.4 mmol/L (3.5-5.5); Sodium, Blood 141 mmol/L (136-145)
--- NOTE | 2020-12-13 16:12 | NUR ---
PT INCONTINENT OF LARGE LIQUID STOOL. STOOL SEEPED INTO GLUTEAL WOUND. WOUND CLEANED OUT WITH SALINE, RE-PACKED, MEPILEX PLACED OVER WOUND. RECTAL TUBE PLACED.
--- NOTE | 2020-12-13 17:58 | NUR ---
PROPOFOL AT 40MCG. FENT 50MCG, ATIVAN 2MG GIVEN FOR INCREASED RESP, AGITATION, HTN D/T AGITATION. RECTAL TUBE INTACT. PT HAD VERY GOOD U/O TODAY; ~3L. 20MEQ K+ GIVEN PT. DRSG TO GLUTEAL WOUND CHANGED TWICE (ONCE D/T STOOL). PT TOLERATING TUBE FEEDING'S W 0 RESIDUALS. FIO2 REMAINS AT 30%. PT DOES TEMP. DESATURATE W POSITION CHANGES BUT RECOVERS WITHIN 1-2MIN. MOD TO LARGE AMT OF SECRETIONS SUCTIONED FROM ETT AND MOUTH TODAY. PT'S AT [facility] FROM [phone] TODAY.
[2020-12-14 04:19] LABS: BASOPHILS ABSOLUTE AUTO 0.11 K/mm3 (0.00-0.23); BASOPHILS PERCENT AUTO 1 % (0-2); Hematocrit 33.3 % (37.0-53.0); Hemoglobin 11.4 g/dL (13.5-17.5); LYMPHOCYTES ABSOLUTE AUTO 1.26 K/mm3 (0.84-5.20); LYMPHOCYTES PERCENT AUTO 8 % (21-46); MONOCYTES ABSOLUTE AUTO 0.88 K/mm3 (0.16-1.47); MONOCYTES PERCENT AUTO 5 % (4-13); Mean Corpuscular HGB 31.3 pg (26.0-34.0); Mean Corpuscular HGB Conc 34.2 g/dL (31.5-36.5); Mean Corpuscular Volume 92 fL (80-100); Mean Platelet Volume 9.9 fL (9.1-12.4); NRBC ABSOLUTE 0.05 K/mm3 (0.00-0.02); NRBC Auto 0.3 /100 WBC (0.0-0.2); Platelet Count 408 K/mm3 (150-400); RDW Coefficient Variation 14.6 % (11.7-14.2); RDW Standard Deviation 49.8 fL (35.1-46.3); Red Blood Cell Count 3.64 M/mm3 (4.30-5.90); White Blood Cell Count 16.52 K/mm3 (4.00-11.30)
[2020-12-14 04:21] LABS: EOSINOPHILS ABSOLUTE AUTO 0.18 K/mm3 (0.00-0.68); EOSINOPHILS PERCENT AUTO 1 % (0-6); IMMATURE GRAN ABSOLUTE AUTO 2.03 K/mm3 (0.00-0.10); IMMATURE GRAN PERCENT AUTO 12 % (0-1); NEUTROPHILS ABSOLUTE AUTO 12.06 K/mm3 (1.96-9.15); NEUTROPHILS PERCENT AUTO 73 % (41-73)
[2020-12-14 04:37] LABS: Albumin, Blood 1.9 g/dL (3.4-5.0); Anion Gap 12 mmol/L (6-16); Blood Urea Nitrogen 72 mg/dL (8-24); Bun/Creatinine Ratio 14.7 (12.0-20.0); CO2, Blood 21 mmol/L (21-32); Calcium, Blood 7.9 mg/dL (8.5-10.1); Chloride, Blood 111 mmol/L (98-108); Creatinine, Blood 4.89 mg/dL (0.60-1.20); Glomerular Filtration Rate 14 (60-); Glucose, Blood 200 mg/dL (70-99); Magnesium, Blood 2.4 mg/dL (1.6-2.4); Phosphorus, Blood 4.5 mg/dL (2.5-4.9); Sodium, Blood 144 mmol/L (136-145); Vancomycin, Random 20.9 ug/mL
[2020-12-14 05:03] LABS: PCO2 Arterial 32.1 mmHg (35-45); PO2 Arterial 62.9 mmHg (80-100); pH Blood Arterial 7.42 (7.35-7.45)
[2020-12-14 05:37] LABS: BAND PERCENT MAN 3 % (0-8); BASOPHILS PERCENT MAN 0 % (0-2); EOSINOPHILS PERCENT MAN 0 % (0-6); LYMPHOCYTES ABSOLUTE MAN 1.15 K/mm3 (0.84-5.20); LYMPHOCYTES PERCENT MAN 7 % (21-46); METAMYELOCYTE ABSOLUTE MAN 0.66 K/mm3 (0.00-0.00); METAMYELOCYTE PERCENT MAN 4 % (0-0); MONOCYTES ABSOLUTE MAN 0.66 K/mm3 (0.16-1.47); MONOCYTES PERCENT MAN 4 % (4-13); NEUTROPHILS ABSOLUTE MAN 14.04 K/mm3 (1.96-9.15); SEG NEUTROPHILS PERCENT MAN 82 % (41-73); TOTAL CELLS COUNTED 100
--- NOTE | 2020-12-14 08:00 | NUR ---
ASSUMED CARE OF PT, REPORT RCV'D FROM ALLY LOZA. PT INTUBATED AND SEDATED. PT ON SPONTANEOUS VENT SETTINGS AT START OF SHIFT, SWITCHED TO A/C 16/500/5/30% D/T RR IN 40'S, HR 110'S AND HYPERTENSION. PT TOLERATING A/C WELL. PROPOFOL INFUSING AT 60 MCG/KG/MIN. PT ADEQUATELY SEDATED, WITHDRAWS FROM PAINFUL STIMULI, FAILS TO FOLLOW COMMANDS AT THIS TIME. PT CONTINUOUSLY HYPERTENSIVE WITH SYSTOLIC>200, DR. ALTAMIRANO AND DR. URIAS AWARE, MEDICATION CHANGES PLACED IN EMAR. BAINS PATENT AND DRAINING CLEAR YELLOW URINE. RECTAL TUBE PATENT BUT LEAKING, EVAN CARE PERFORMED AND BEDDING CHANGED. NEW PICTURES TAKEN OF LEFT BUTTOCK WOUND, WOUND CLEANED WITH WOUND CLEANSER, CALCIUM ALGINATE REPLACED WITH MEPILEX COVERING. PT HAS NEW RASH TO GROIN, LEFT BUTTOCK AND LEFT AXILLARY. DR. ALTAMIRANO AND DR. URIAS ASSESSED, ORDER FOR NYSTATIN CREAM PLACED. (PHOTOS IN CHART). VITAL HIGH PROTEIN @ 25 ML/HR WITH 30 ML Q4, LOW RESIDUALS. SEE FULL SHIFT ASSESSMENT.
--- NOTE | 2020-12-14 18:43 | NUR ---
SHIFT SUMMARY PT REMAINS INTUBATED AND SEDATED. VENT SETTINGS AC 16/500/5/30%. PT LIGHTLY SEDATED WITH PROPOFOL @ 50 MCG/KG/MIN. PT FOLLOWS COMMANDS TO SQUEEZE HAND, OPEN MOUTH FOR ORAL CARE AND PT ABLE TO SQUEEZE HAND IN REPONSE TO QUESTION OF PAIN. PT CONTINUES TO HAVE MODERATE AMOUNT OF CLEAR ORAL SECRETIONS AND SECRETIONS FROM ETT. PT'S HYPERTENSION IMPROVING. 2900 ML URINARY OUTPUT. SMALL AMOUNT OF WATERY BROWN STOOL IN RECTAL TUBE. TUBE FEED DECREASED TO 10 ML/HR, NO RESIDUALS. WILL REPORT TO ONCOMING NURSE.
[2020-12-15 03:59] LABS: Hematocrit 32.8 % (37.0-53.0); Hemoglobin 11.1 g/dL (13.5-17.5); Mean Corpuscular HGB 31.7 pg (26.0-34.0); Mean Corpuscular HGB Conc 33.8 g/dL (31.5-36.5); Mean Corpuscular Volume 94 fL (80-100); Platelet Count 439 K/mm3 (150-400); RDW Coefficient Variation 15.2 % (11.7-14.2); RDW Standard Deviation 51.8 fL (35.1-46.3); White Blood Cell Count 17.96 K/mm3 (4.00-11.30)
[2020-12-15 04:17] LABS: Albumin, Blood 1.9 g/dL (3.4-5.0); Anion Gap 11 mmol/L (6-16); Blood Urea Nitrogen 71 mg/dL (8-24); Bun/Creatinine Ratio 17.6 (12.0-20.0); CO2, Blood 20 mmol/L (21-32); Calcium, Blood 7.8 mg/dL (8.5-10.1); Chloride, Blood 115 mmol/L (98-108); Creatinine, Blood 4.03 mg/dL (0.60-1.20); Glomerular Filtration Rate 17 (60-); Glucose, Blood 209 mg/dL (70-99); Phosphorus, Blood 3.8 mg/dL (2.5-4.9); Sodium, Blood 146 mmol/L (136-145); Vancomycin, Random 14.4 ug/mL
[2020-12-15 04:26] LABS: BAND PERCENT MAN 17 % (0-8); BASOPHILS PERCENT MAN 0 % (0-2); EOSINOPHILS ABSOLUTE MAN 0.17 K/mm3 (0.00-0.68); EOSINOPHILS PERCENT MAN 1 % (0-6); LYMPHOCYTES ABSOLUTE MAN 0.53 K/mm3 (0.84-5.20); LYMPHOCYTES PERCENT MAN 3 % (21-46); MONOCYTES ABSOLUTE MAN 0.71 K/mm3 (0.16-1.47); MONOCYTES PERCENT MAN 4 % (4-13); MYELOCYTE ABSOLUTE MAN 0.35 K/mm3 (0.00-0.00); MYELOCYTE PERCENT MAN 2 % (0-0); NEUTROPHILS ABSOLUTE MAN 16.16 K/mm3 (1.96-9.15); SEG NEUTROPHILS PERCENT MAN 73 % (41-73); TOTAL CELLS COUNTED 100
--- NOTE | 2020-12-15 06:24 | NUR ---
SHIFT SUMMARY PATIENT SLEPT WELL THRU NIGHT. ATTEMPTED TWICE TO TURN SEDATION DOWN FROM 50 MCG/KG/HR TO 40, BOTH TIMES PT. BECAME TACHYNPIC, TACHYCARDIC, HYPERTENSIVE, INCREASED SEDATION. 02:45 GAVE FENTANYL AND ATIVAN FOR UNCONTROLLABLE AGITATION, PT. STARTED THRASHING HEAD SIDE TO SIDE, NOT FOLLOWING DIRECTIONS. OPTED NOT TO PERFORM SPONTANEOUS BREATHING TRIAL, PT. HAD PREVIOUSLY BEEN ON SPONTANEOUS FOR OVER 48 HOURS. PT. TOLERATING VENTILATOR WELL CURRENTLY. AROUND 23:[address] ALTAMIRANO FOR INCREASING RASH, CONCERNING FOR ALLERGIC REACTION. GAVE 1 DOSE 50 MG BENADRYL, REDNESS IS DECREASING IN FACE. ASSESSMENT IS CHARTED. VSS. WILL CONTINUE TO MONITOR.
--- NOTE | 2020-12-15 09:38 | NUR ---
ASSUMED CARE OF PT, REPORT RCV'D FROM ALLY LOZA. PT PLACED ON SPONTANEOUS VENTILATION THIS MORNING AT 0845, SEDATION SHUT OFF TO ASSESS EXTUBATION POSSIBILITY. AFTER 1 HR SEDATION RESTARTED AND PT SWITCHED BACK TO AC D/T AGITATION, INCREASED RR, AND COUGHING. PT CONTINUES TO HAVE COPIOUS AMOUNTS OF THICK CLEAR ORAL SECRETIONS. CURRENT VENT SETTINGS AC 16/500/5/30%. WHILE SEDATION ON STANDBY PT ABLE TO FOLLOW COMMANDS TO SQUEEZE HANDS BILATERALLY. PROPOFOL CURRENTLY @ 50 MCG/KG/MIN. PTS RASH MUCH WORSE THIS MORNING. RASH NOW SPREAD OVER MUCH OF THE BODY. RUBY ALTAMIRANO, BRIDGETT, AND COSME IN TO ASSESS. PT RESTARTED ON SOLUMEDROL, WILL CONTINUE TO MONITOR FOR CHANGES. BAINS PATENT AND DRAINING TO GRAVITY. RECTAL TUBE PATENT WITH BROWN WATERY STOOL IN TUBE. ABDOMINAL/PANNUS DRESSING C/D/I, WILL ASSESS BUTTOCK WOUND WHEN CHANGING DRESSING. CALLED AGAIN AND LEFT VOICEMAIL FOR DR. KELLER (INFECTIOUS DISEASES) SEE FULL SHIFT ASSESSMENT
--- NOTE | 2020-12-15 18:19 | NUR ---
SHIFT SUMMARY PT REMAINS INTUBATED AND SEDATED, VENT SETTINGS UNCHANGED. PROPOFOL REMAINS @ 55 MCG/KG/MIN. PT AWAKENS EASILY AND FOLLOWS COMMANDS. PT CONTINUES TO HAVE COPIOUS THICK CLEAR ORAL SECRETIONS, SMALL AMOUNT FROM ETT. 2600 ML URINARY OUTPUT, 400 ML BROWN LIQUID STOOL FROM RECTAL TUBE. WILL REPORT TO ONCOMING NURSE
[2020-12-16 03:45] LABS: Hematocrit 32.5 % (37.0-53.0); Hemoglobin 10.6 g/dL (13.5-17.5); Mean Corpuscular HGB 31.1 pg (26.0-34.0); Mean Corpuscular HGB Conc 32.6 g/dL (31.5-36.5); Mean Corpuscular Volume 95 fL (80-100); Mean Platelet Volume 9.6 fL (9.1-12.4); NRBC ABSOLUTE 0.02 K/mm3 (0.00-0.02); NRBC Auto 0.1 /100 WBC (0.0-0.2); Platelet Count 440 K/mm3 (150-400); RDW Coefficient Variation 15.3 % (11.7-14.2); RDW Standard Deviation 53.5 fL (35.1-46.3); Red Blood Cell Count 3.41 M/mm3 (4.30-5.90); White Blood Cell Count 18.98 K/mm3 (4.00-11.30)
[2020-12-16 04:05] LABS: BAND PERCENT MAN 13 % (0-8); BASOPHILS PERCENT MAN 0 % (0-2); EOSINOPHILS ABSOLUTE MAN 0.18 K/mm3 (0.00-0.68); EOSINOPHILS PERCENT MAN 1 % (0-6); LYMPHOCYTES ABSOLUTE MAN 0.56 K/mm3 (0.84-5.20); LYMPHOCYTES PERCENT MAN 3 % (21-46); METAMYELOCYTE ABSOLUTE MAN 0.56 K/mm3 (0.00-0.00); METAMYELOCYTE PERCENT MAN 3 % (0-0); MONOCYTES ABSOLUTE MAN 0.56 K/mm3 (0.16-1.47); MONOCYTES PERCENT MAN 3 % (4-13); MYELOCYTE ABSOLUTE MAN 0.18 K/mm3 (0.00-0.00); MYELOCYTE PERCENT MAN 1 % (0-0); NEUTROPHILS ABSOLUTE MAN 16.89 K/mm3 (1.96-9.15); SEG NEUTROPHILS PERCENT MAN 76 % (41-73); TOTAL CELLS COUNTED 100
[2020-12-16 04:07] LABS: Albumin, Blood 1.8 g/dL (3.4-5.0); Albumin/Globulin Ratio 0.4 (0.8-1.8); Bilirubin, Total 0.5 mg/dL (0.1-1.0); Bun/Creatinine Ratio 21.5 (12.0-20.0); Calcium, Blood 8.1 mg/dL (8.5-10.1); Creatinine, Blood 3.31 mg/dL (0.60-1.20); Globulin, Blood 4.5 g/dL (2.2-4.0); Magnesium, Blood 2.3 mg/dL (1.6-2.4); Phosphorus, Blood 3.7 mg/dL (2.5-4.9); Potassium, Blood 3.5 mmol/L (3.5-5.5); Total Protein, Blood 6.3 g/dL (6.4-8.2)
[2020-12-16 05:22] LABS: PCO2 Arterial 31.9 mmHg (35-45); PO2 Arterial 77.3 mmHg (80-100); pH Blood Arterial 7.41 (7.35-7.45)
--- NOTE | 2020-12-16 05:51 | NUR ---
SHIFT SUMMARY PATIENT SLEPT WELL THROUGH NIGHT. ASSESSMENT IS CHARTED. VSS. NO C/O PAIN. WILL CONTINUE TO MONITOR.
--- NOTE | 2020-12-16 08:00 | NUR ---
PT REMAINS INTUBATED, SEDATED, AND RESTRAINED. OPENS EYES TO VERBAL STIMULI. PT VERY AGITATED, GRIMACING, AND PULLING ON RESTRAINTS WITH PROPOFOL @ 45 MCG/KG/MIN. TITRATED UP TO 55 MCG/KG/MIN AND MED WITH BOTH FENTANYL AND ATIVAN-SEE EMAR. ETT TO VENT: AC 16, RR 24, TV 500, PEEP 5, FIO2 30% SATS>90% LUNGS COARSE TO UPPER LOBES AND DIMINISHED IN THE BASES. ETT SUCTION PRODUCTIVE OF A SMALL AMOUNT OF THICK, WHITE SECRETIONS. OGTF TOLERATED @ GOAL RATE OF 25 CC/HR WITH MINIMAL RESIDUAL. PT INCONTINENT OF LARGE AMOUNT OF BROWN, LIQUID STOOL AROUNG THE RECTAL TUBE. PARTIAL BATH, LINEN CHANGE, AND WOUND CARE COMPLETED. SKIN RASH CONTINUES. EVAN AREA RASH HAS NOT EXTENDED BEYOND THE DEMARCATED AREA. THE RASH/REDNESS TO EVAN AREA APPEARS TO BE YEAST-LIKE. WHITE, COTTAGE CHEESE LIKE DISCHARGE AROUND MEATUS/URETHRA/FORESKIN. ANTIFUNGAL CREAM APPLIED TO EVAN AREA. WILL CONTINUE TO MONITOR THE RASH-MED WITH BENADRYL NEEDED. ANTICIPATE SEDATION VACATION AND WEANING TRIAL LATER THIS AM. NOC SHIFT REPORTS "LOTS" OF SECRETIONS AND CONCERN THAT IF EXTUBATED, PT WOULD NOT BE ABLE TO CLEAR THESE SECRETIONS.
--- NOTE | 2020-12-16 10:46 | NUR ---
DURING REPOSITIONING, PT NOTED TO BE WARM TO THE TOUCH-TEMP 101.4 MED WITH TYLENOL PER OGT-FAN ON.
--- NOTE | 2020-12-16 12:00 | NUR ---
PT INTERMITTENTLY AGITATED WITH PROPOFOL @ 55 MCG/KG/MIN. MED WITH FENTANYL AND ATIVAN FOR PAIN/SEDATION ADJUNCT. PT OPENS EYES TO VOICE-SCLERAL VERY RED AND PURULENT DRAINAGE FROM EYES NOTED. TEMP 101.1 DESPITE GIVING TYLENOL VIA OGT-SEE EMAR. ETT WITH LARGE AMOUNT OF THICK, ESPINOSA SECRETIONS-LUNGS REMAIN COARSE AND DIMINISHED. DR. AWAN AWARE-WILL ATTEMPT WEANING TRIAL IN AM 12/17/20. RASH APPEARS SLIGHTLY LESS RED SINCE BENADRYL GIVEN-SEE EMAR.
--- NOTE | 2020-12-16 15:17 | NUR ---
Supportive visit with at bedside. She has to return to work on saturday and is stressing over the transtion. She expressed stress at seeing him on the ventilator. Sheis hoepfull he will get off soon. She also reviewed stress over his rehab. 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 Her neighbor in a nurse here and they speak frequently. She has some fears of the medicl bills. Review of some possible sources of information that might help her. She is fearfull of any change in insurance that [facility] increase her cost. ADvised will ask in general. She has twot grown children that giving he emotional support. Gave her our number for help if she cant get in to see him and needs updates. Will follow up with some general information on financial support.
--- NOTE | 2020-12-16 16:00 | NUR ---
PT CONTINUES TO BE INTERMITTENTLY AGITATED. PT AT BEDSIDE AND PT APPEARS QUITE AGITATED WITH HER TALKING TO HIM AND HOLDING HIS HAND. MED WITH ATIVAN 4 MG IVP X 1. INCONTINENT OF MEDIUM AMOUNT OF STOOL AROUND RECTAL TUBE. EVAN CARE AND LINEN CHANGE COMPLETED WITH 3 PERSON ASSIST. PT TOLERATED WELL.
--- NOTE | 2020-12-16 18:00 | NUR ---
PT REMAINS AGITATED WITH STIMULI. MED WITH FENTANYL 50 MCG IVP X 1 FOR PAIN/SEDATION ADJUNCT. RASH CONTINUES, BUT APPEARS SLIGHTLY LESS RED AND INFLAMMED THAN IT WAS EARLIER TODAY. MED WITH BENADRYL IV-SEE EMAR.
--- NOTE | 2020-12-16 20:00 | NUR ---
ASSUMING PT CARE: PT INTUBATED & SEDATED. VENT: AC 16/500, 5/30%. GTTs: PROPOFOL @ 55mcg/kg/hr. PT DOES NOT AWAKE TO VERBAL STIMULI, HOWEVER RECOILS W/ ORAL CARE & PAINFUL STIMULI. WHEN UNDISTURBED PT APPEARS COMFORTABLE & TOLERATING VENT WELL. SEE INITIAL SPANISH LINGUIST. WILL CONTINUE TO MONITOR & REPORT APPROPRIATE.
[2020-12-17 03:37] LABS: Source, Urine Catheter
[2020-12-17 03:39] LABS: Bilirubin, Urine Neg (Neg); Blood, Urine 3+ (Neg); Glucose Qualitative, Urine 3+ (Neg); Ketones, Urine Neg (Neg); Leukocyte Esterase, Urine Neg (Neg); Nitrite, Urine Neg (Neg); Protein, Urine 2+ (Neg); Urobilinogen, Urine NORM (Normal)
[2020-12-17 03:41] LABS: Base Excess Venous -6.9 mmol/L; Bicarbonate Venous 19.5 mmol/L (24.0-30.0); PCO2 Venous 31.2 mmHg (38-42); PO2 Venous 101 mmHg (38-42); pH Blood Venous 7.38 (7.34-7.37)
[2020-12-17 03:52] LABS: Appearance, Urine Clear (Clear); Color, Urine Yellow (P-Yellow); Red Blood Cells, Urine 50-100 /hpf (0-2); White Blood Cells, Urine Not Seen /hpf (0-5)
[2020-12-17 03:53] LABS: Bacteria Not Seen /hpf; Squamous Epithelial Cells Not Seen /hpf (Few); Transitional Epithelial Cells Few /hpf (0-Rare)
[2020-12-17 03:57] LABS: Hematocrit 33.2 % (37.0-53.0); Hemoglobin 10.8 g/dL (13.5-17.5); Mean Corpuscular HGB 31.7 pg (26.0-34.0); Mean Corpuscular HGB Conc 32.5 g/dL (31.5-36.5); Mean Corpuscular Volume 97 fL (80-100); Mean Platelet Volume 9.8 fL (9.1-12.4); Platelet Count 433 K/mm3 (150-400); RDW Coefficient Variation 15.1 % (11.7-14.2); RDW Standard Deviation 54.3 fL (35.1-46.3); Red Blood Cell Count 3.41 M/mm3 (4.30-5.90); White Blood Cell Count 16.39 K/mm3 (4.00-11.30)
[2020-12-17 04:16] LABS: Bun/Creatinine Ratio 27.2 (12.0-20.0); Calcium, Blood 8.2 mg/dL (8.5-10.1); Creatinine, Blood 2.72 mg/dL (0.60-1.20); Magnesium, Blood 2.2 mg/dL (1.6-2.4); Phosphorus, Blood 3.6 mg/dL (2.5-4.9)
[2020-12-17 05:17] LABS: BAND PERCENT MAN 5 % (0-8); BASOPHILS PERCENT MAN 0 % (0-2); EOSINOPHILS ABSOLUTE MAN 0.16 K/mm3 (0.00-0.68); EOSINOPHILS PERCENT MAN 1 % (0-6); LYMPHOCYTES ABSOLUTE MAN 1.14 K/mm3 (0.84-5.20); LYMPHOCYTES PERCENT MAN 7 % (21-46); METAMYELOCYTE ABSOLUTE MAN 0.16 K/mm3 (0.00-0.00); METAMYELOCYTE PERCENT MAN 1 % (0-0); MONOCYTES ABSOLUTE MAN 0.32 K/mm3 (0.16-1.47); MONOCYTES PERCENT MAN 2 % (4-13); MYELOCYTE ABSOLUTE MAN 0.32 K/mm3 (0.00-0.00); MYELOCYTE PERCENT MAN 2 % (0-0); NEUTROPHILS ABSOLUTE MAN 14.25 K/mm3 (1.96-9.15); SEG NEUTROPHILS PERCENT MAN 82 % (41-73); TOTAL CELLS COUNTED 100
--- NOTE | 2020-12-17 05:41 | NUR ---
SHIFT SUMMARY: PT REMAINS INTUBATED & SEDATED: VENT: SPONT PEEP 5, PS 7, 30% FiO2. GTTs: PROPOFOL 45mcg/kg/min. THROUGHOUT THE NIGHT, PT RESTED RELATIVELY WELL. BECOMING AGITATED ONLY DURING CARE, WHICH WAS MITIGATED W/ PRN ATIVAN & FENTANYL. PT's RASH HAS NOT IMPROVED, DESPITE SOLU-MEDROL & BENADRYL. BAINS CATH REPLACED D/T DEFECTIVE TEMP PROBE. 1650ml URINE OUTPUT. WOUND DRESSINGS CHANGED & UPDATED IN ASSESSMENTS. PT HAS BEEN TOLERATING & STABLE ON SPONTANEOUS FOR APPROX 40min HOWEVER RT SUGGESTS SBTs TODAY TO INC PT's TOLERANCE & SUCCESS FOR EXTUBATION. WILL CONTINUE TO MONITOR & REPORT APPROPRIATE
--- NOTE | 2020-12-17 08:00 | NUR ---
PT REMAINS INTUBATED, SEDATED ON PROPOFOL @ 45 MCG/KG/MIN, AND INTUBATED. PT APPEARS RESTLESS AND AGITATED. PULLING ON RESTRAINTS, CURLING HIS TOES. PT OPENS EYES TO VOICE, BUT NOT FOLLOWING COMMANDS. VENT ON SPONTANEOUS-RR [id number] SATS >90%. FEWER ETT SECRETIONS-SMALL AMOUNT OF THICK, WHITE SPUTUM. HOWEVER, STILL COPIOUS, THICK, WHITE ORAL SECRETIONS. PT CONTINUES TO TOLERATE OGTF @ GOAL OF 10 CC/HR WITH MINIMAL RESIDUAL. BAINS WITH LARGE AMOUNT OF CLEAR, YELLOW URINE TO BSD. THE RASH THROUGH OUT IS LESS RED AND IRRITATED THAN 12/16/20-MED WITH BENADRYL AND APPLIED ANTIFUNGAL TO REDNESS IN EVAN AREA. PT INCONTINENT OF SMALL AMOUNT OF BROWN, LIQUID STOOL AROUND RECTAL TUBE. PARTIAL BATH, LINEN CHANGE, AND WOUND CARE COMPLETED. WOUNDS TO RIGHT ABDOMEN/PANUS AND LEFT GLUTEAL FOLD ARE UNCHANGED FROM 12/16/20. WILL CONTINUE ON SPONTANEOUS TOLERATED AND ADDRESS POSSIBLE EXTUBATION LATER TODAY WITH DR. AWAN.
--- NOTE | 2020-12-17 10:45 | NUR ---
PT TITRATED OFF OF PROPOFOL DRIP AND PRECEDEX @ 1.4 MCG/KG/MIN INITIATED. PT OPENING EYES TO VERBAL STIMULI, BUT STILL NOT FOLLOWING COMMANDS. RR 28 AND MAINTAINING SATS >90% ON SPONTANEOUS WITH FIO2 30%.
--- NOTE | 2020-12-17 12:00 | NUR ---
HR 40'S WITH PRECEDEX @ 1.4 MCCG/KG/MIN-DECREASED TO 0.7 MCG/KG/MIN AND PT IMMEDIATELY AWAKE AND ANXIOUS-SHAKING HIS HEAD BACK AND FORTH ON THE PILLOW AND PULLING ON RESTRAINTS.RR 36-42 AT THAT TIME. MED WITH TOTAL OF 4 MG ATIVAN BEFORE PT BEGAN TO RELAX. TEMP 99.5. LUNGS REMAIN DIMINISHED IN THE BASES-SATS>90% ON SPONTANEOUS MODE. NOON DOSE OF METOPROLOL HELD DUE TO HR. 40'S. DR. LV ZALDIVAR.
--- NOTE | 2020-12-17 12:30 | NUR ---
PT FOLLOWING A FEW SIMPLE COMMANDS-HR 60'S WITH PRECEDEX @ 0.7 MCG/KG/MIN.
--- NOTE | 2020-12-17 15:00 | NUR ---
PT SPOUSE IN FOR VISIT. VERBAL CONSENT GIVEN FOR PLACEMENT OF PICC LINE. PROPOFOL DRIP RESUMED @ 50 MCG/KG/MIN-PRECEDEX OFF- PT MED WITH FENTANYL 50 MCG IVP X 1 FOR PAIN/SEDATION ADJUNCT. VENT RETURNED TO AC 16, TV 500, PEEP 5, FIO2 30% RR 28-32, SATS >90%
--- NOTE | 2020-12-17 18:00 | NUR ---
PT HAS BEEN RESTING QUIETLY ON THE VENT SINCE PROPOFOL RESUMED. MED WITH ATIVAN 2 MG IVP X 1 PRIOR TO POSITION CHANGE/ADL'S, AND PROPOFOL DECREASED TO 45 MCG/KG/MIN.
--- NOTE | 2020-12-17 20:00 | NUR ---
ASSUMING PT CARE: PT IS INTUBATED & SEDATED. VENT: AC 16/500, 5/30%. PROPOFOL @ 45mcg/kg/min. PT OPENS EYES TO NAME, PULLS @ RESTRAINTS BUT DOES NOT APPEAR TO DEMONSTRATE ANY INTENTIONAL MOVEMENT. DURING ORAL CARE PT BECAME VERY ANXIOUS BUT WAS ABLE TO BE CONSOLED W/ VERBAL COMMANDS. RASH APPEARS UNCHANGED FROM PREVIOUS SHIFT. PLAN TO TITRATE DOWN PROPOFOL THROUGHOUT SHIFT & START PRECEDEX TO IMPROVE PT'S MENTATION & ENCOURAGE A SUCCESSFUL WEAN & POSSIBLE EXTUBATION TOMORROW -PER LV. WILL CONTINUE TO MONITOR & REPORT APPROPRIATE.
[2020-12-18 04:57] LABS: Hematocrit 33.7 % (37.0-53.0); Hemoglobin 10.7 g/dL (13.5-17.5); Mean Corpuscular HGB 31.1 pg (26.0-34.0); Mean Corpuscular HGB Conc 31.8 g/dL (31.5-36.5); Mean Corpuscular Volume 98 fL (80-100); Mean Platelet Volume 9.4 fL (9.1-12.4); Platelet Count 388 K/mm3 (150-400); RDW Coefficient Variation 14.8 % (11.7-14.2); RDW Standard Deviation 53.2 fL (35.1-46.3); Red Blood Cell Count 3.44 M/mm3 (4.30-5.90); White Blood Cell Count 14.64 K/mm3 (4.00-11.30)
--- NOTE | 2020-12-18 05:00 | NUR ---
UPDATE: PT PLACED ON SPONTANEOUS PS 7/5, 30%. PROPOFOL CONTINUES TO BE TITRATED DOWN & PRECEDEX TITRATED UP, PT TOLERATES. PT CONTINUES TO REQUIRE FREQUENT PRN ATIVAN TO TOLERATE DEC IN PROPOFOL
[2020-12-18 05:15] LABS: Bun/Creatinine Ratio 30.7 (12.0-20.0); Calcium, Blood 8.3 mg/dL (8.5-10.1); Creatinine, Blood 2.41 mg/dL (0.60-1.20); Magnesium, Blood 2.1 mg/dL (1.6-2.4); Phosphorus, Blood 3.7 mg/dL (2.5-4.9); Potassium, Blood 4.5 mmol/L (3.5-5.5)
[2020-12-18 05:36] LABS: PCO2 Arterial 33.5 mmHg (35-45); PO2 Arterial 74.7 mmHg (80-100); pH Blood Arterial 7.36 (7.35-7.45)
[2020-12-18 05:44] LABS: BAND PERCENT MAN 7 % (0-8); BASOPHILS ABSOLUTE MAN 0.14 K/mm3 (0.00-0.23); BASOPHILS PERCENT MAN 1 % (0-2); EOSINOPHILS ABSOLUTE MAN 0.29 K/mm3 (0.00-0.68); EOSINOPHILS PERCENT MAN 2 % (0-6); LYMPHOCYTES ABSOLUTE MAN 1.02 K/mm3 (0.84-5.20); LYMPHOCYTES PERCENT MAN 7 % (21-46); MONOCYTES ABSOLUTE MAN 0.58 K/mm3 (0.16-1.47); MONOCYTES PERCENT MAN 4 % (4-13); MYELOCYTE ABSOLUTE MAN 0.29 K/mm3 (0.00-0.00); MYELOCYTE PERCENT MAN 2 % (0-0); NEUTROPHILS ABSOLUTE MAN 12.29 K/mm3 (1.96-9.15); SEG NEUTROPHILS PERCENT MAN 77 % (41-73); TOTAL CELLS COUNTED 100
--- NOTE | 2020-12-18 06:06 | NUR ---
SHIFT SUMMARY: PT IS INTUBATED & SEDATED. VENT: SPONTANEOUS W/ PS 7/5, FiO2 30%. RR30-36. TV 345-540. GTTs: PROPOFOL 25mcg/kg/min, PRECEDEX 0.4mcg/kg/hr. TF @ GOAL 10ml/hr. THROUGHOUT THE NIGHT PT REQUIRED SEVERAL DOSES OF PRN ATIVAN, FENTANYL, & BENADRYL TO TOLERATE THE DEC IN PROPOFOL TO PREPARE FOR POSSIBLE EXTUBATION TODAY. HE APPEARS COMFORTABLE AT THIS TIME, THOUGH STILL UNABLE TO FOLLOW COMMANDS. 2,400ml URINE OUTPUT. SCANT RECTAL TUBE OUTPUT. RASH APPEARS LESS RED. WILL CONTINUE TO MONITOR UNTIL REPORT OFF TO ONCOMING RN .
--- NOTE | 2020-12-18 09:51 | NUR ---
CARE ASSUMED OF PT AT 0700. PT SEDATED ON PROPOFOL AT 25MCG AND PRECEDEX AT 0.4MCG FOR MECH VENT. PT ON PS 7, FIO2 30%, SATS >90%. PT ABLE TO LIGHTLY SIFTER AND MILLER EACH AHND TO COMMAND. PT CALM. UNABLE TO NOD HEAD TO QUESTIONS, BUT OPENS EYES TO VOICE. FINE CRACKLES TO LLL, OTHERWISE CLEAR T/O. MOD SECRETIONS ESPINOSA/YELLOW FROM ETT, THICK YET THINNER THAN PREVIOUS DAY. FLEXISEAL TUBE INTACT; NO LEAK. DRSG TO LEFT BUTTOCKS INTACT, ABD DRSG INTACT WELL. PT TOLERATING TUBE FEEDING; NO RESIDUALS. ETT AT 27CM AT LOWER TEETH; OKAY PLACEMENT PER DR AWAN. BEDSIDE BRONCHOSCOPY COMPLETED BY DR AWAN AT 0930. MUCUS PLUGS REMOVED. PT TOLERATED PROCEDURE WELL. PROPOFOL INCREASED TO 75MCG FOR PROCEDURE, PROPOFOL AT 50MCG AFTER PROCEDURE. WILL CONT TO TITRATE SEDATION DOWN TOLERATED.
--- NOTE | 2020-12-18 12:20 | NUR ---
PROPOFOL TURNED OFF AT 1145. WITHIN 5MIN PT AWAKE, CALM AND FOLLOWING DIRECTIONS. DR AWAN NOTIFIED. TUBE FEEDING TURNED OFF. PT EXTUBATED BY RT W DR AWAN AT BEDSIDE AT 1200. RESTRAINTS REMOVED. O2 AT 2L PLACED VIA N/C. PRECEDEX TURNED OFF AFTER EXTUBATION D/T DROWSINESS. PT'S NOTIFIED VIA PHONE AND WILL BE HERE AT 1400.
--- NOTE | 2020-12-18 14:39 | NUR ---
PT'S FLEXISEAL LEAKED. 3 RN'S CLEANED AND REPOSITIONED PT ON SIDE. DRSG TO LEFT GLUTEAL WOUND CHANGED. NO CHANGE IN WOUND FROM LAST ASSESSMENT ON SAT. PTS' VOICE IS BEGINNING TO BECOME SLIGHTLY STRONGER, DROWSINESS IMPROVING. PT ATTEMPTED TO HELP W TURN BUT IS STILL TOO WEAK. PT W HTN. SATS REMAIN >90% ON JUST 2L VIA N/C.
--- NOTE | 2020-12-18 17:06 | NUR ---
PT C/O "BUTT" PAIN 03/18 UNRELIEVED BY FENT 25MCG. FENT 50MCG GIVEN FOR PAIN W SOME RELIEF. PT'S RECTAL TUBE LEAKED AGAIN, LARGE AMT. RECTAL TUBE REMOVED. DRSG REPLACED TO LEFT GLUTEAL AGAIN. PT TURNED TO RIGHT SIDE. LABETALOL GIVEN FOR HTN, PT REMAINS HYPERTENSIVE, BUT IMPROVED. DR URIAS ORDERED D5W AT 75CC/HR FOR NA++ 148.
--- NOTE | 2020-12-18 20:00 | NUR ---
ASSUMING PT CARE: PT LAYING SUPINE IN BED. UPWARD GAZE. DOES NOT TRACK STAFF ABOUT THE ROOM OR MAKE EYE CONTACT WHEN SPEAKING. RESPONDS IN SHORTENED SENTENCES. SLURRED & GARBLED SPEECH. BELIEVES HE IS IN "[place]" & DOES NOT BELIEVE HE IS SICK IN THE HOSPITAL. PT RESPONSES REFLECT VERY PARANOID & CONFUSED THINKING W/ MORBID THEMES - ASKS RN "PLEASE, DON'T BREAK MY ARM" & STS "THE MILES THAT BE" WILL "DESTROY ME" & BELIEVES WHEN STAFF LEAVES THE ROOM, "I WILL BE KILLED". VS WNL & PT IS OTHERWISE STABLE. WILL CONTINUE TO MONITOR CLOSELY & REPORT APPROPRIATE.
--- NOTE | 2020-12-19 00:30 | NUR ---
UPDATE: PT's ANXIETY CONTINUES TO INCREASE, DESPITE PRN ATIVAN & FENTANYL, VERBAL REDIRECTION, TV DISTRACTION, & REPOSITIONING. APPEARS TO BE RESPONDING TO UNSEEN STIMULI W/ FIXED GAZE AT VARIOUS POINTS ON THE CEILING. WHEN ASKED WHAT HE IS SEEING PT STS "THAT THING UP THERE. I'M GOING TO KILL IT". PT APPEARS TO BE VERY DISTRACTED & FEARFUL BY WHAT HE IS SEEING & IS UNABLE TO ENGAGE W/ STAFF FOR REDIRECTION & CONSOLATION. PT DEMONSTRATING UNSAFE BEHAVIORS, ATTEMPTING TO GET OUT OF BED & PULL @ MONITORING EQUIP. STS HE IS GOING HOME. DISCUSSED BEHAVIORS W/ ARCHITECTURE FACULTY MEMBER. PRECEDEX GTT RESTARTED.
[2020-12-19 04:28] LABS: Triglycerides 502 mg/dL (30-160)
[2020-12-19 06:06] LABS: BASOPHILS ABSOLUTE AUTO 0.07 K/mm3 (0.00-0.23); BASOPHILS PERCENT AUTO 1 % (0-2); EOSINOPHILS ABSOLUTE AUTO 0.05 K/mm3 (0.00-0.68); EOSINOPHILS PERCENT AUTO 0 % (0-6); Hematocrit 34.7 % (37.0-53.0); Hemoglobin 11.1 g/dL (13.5-17.5); IMMATURE GRAN PERCENT AUTO 5 % (0-1); LYMPHOCYTES ABSOLUTE AUTO 0.92 K/mm3 (0.84-5.20); LYMPHOCYTES PERCENT AUTO 6 % (21-46); MONOCYTES ABSOLUTE AUTO 0.55 K/mm3 (0.16-1.47); MONOCYTES PERCENT AUTO 4 % (4-13); Mean Corpuscular HGB 31.9 pg (26.0-34.0); Mean Corpuscular Volume 100 fL (80-100); Mean Platelet Volume 9.9 fL (9.1-12.4); NEUTROPHILS ABSOLUTE AUTO 12.69 K/mm3 (1.96-9.15); NEUTROPHILS PERCENT AUTO 85 % (41-73); Platelet Count 340 K/mm3 (150-400); RDW Coefficient Variation 14.6 % (11.7-14.2); RDW Standard Deviation 53.2 fL (35.1-46.3); Red Blood Cell Count 3.48 M/mm3 (4.30-5.90); White Blood Cell Count 14.98 K/mm3 (4.00-11.30)
[2020-12-19 06:11] LABS: Blood Urea Nitrogen 65 mg/dL (8-24); Bun/Creatinine Ratio 27.3 (12.0-20.0); Calcium, Blood 8.7 mg/dL (8.5-10.1); Chloride, Blood 124 mmol/L (98-108); Creatinine, Blood 2.38 mg/dL (0.60-1.20); Glomerular Filtration Rate 31 (60-); Glucose, Blood 267 mg/dL (70-99); Sodium, Blood 151 mmol/L (136-145)
[2020-12-19 06:35] LABS: Anion Gap 7 mmol/L (6-16); CO2, Blood 20 mmol/L (21-32)
--- NOTE | 2020-12-19 06:55 | NUR ---
SHIFT SUMMARY: PT RESTING SUPINE IN BED. RR EVEN, UNLABORED, RAPID & SHALLOW. SPO2 >95% ON 4L/MIN NC. PT HAD MUCH DIFFICULTY RESTING LAST NIGHT, REQUIRING PRECEDEX GTT & SEVERAL PRN DOSES OF ATIVAN. FINALLY NOW ABLE TO REST. SEE PREVIOUS RN NOTATION. PT CONTINUES TO HAVE LIQUID STOOLS. EVAN-AREA CLEANED & REDRESSED SEVERAL TIMES W/ PROTECTIVE FOAM & LOTION. BRIDGETTE HIPS REMAIN ELEVATED FOR PT COMFORT.
[2020-12-19 07:07] LABS: COMPLEMENT C3, SERUM 196 mg/dL (82-167); COMPLEMENT C4, SERUM 31 mg/dL (12-38)
--- NOTE | 2020-12-19 09:15 | NUR ---
ASSUMED CARE / DR Nina AGUIAR / DR MORGAN: REPORT RECEIVED FROM ALESHIA Vick RN. ASSUMED CARE OF THIS PT AT APPROX 0700. ON ASSESSMENT, THE PT IS RESTING QUIETLY & AWAKENS EASILY TO VERBAL STIMULUS. HE DENIES PAIN OR SOB AT THIS TIME. HE IS ALERT/ ORIENTED TO SELF & FOLLOWING DIRECTIONS, BUT HAVING VISUAL HALLUCINATIONS AT TIMES OF "TINY MEN IN THE CEILING" & DOES NOT BELIEVE THIS RN WHEN ATTEMPTING TO REDIRECT, INSISTING THAT THERE ARE MEN IN THE CEILING. HE DOES REMAIN PLEASANT W/ STAFF BUT IS CONFUSED OVERALL. LS ARE DIM T/O, PT ON 2L NC W/ O2 SATS > 92%. MONITOR SHOWS SB-SR W/ HR 50-60s, HTN NOTED. ANTIHYPERTENSIVES WILL BE GIVEN PER EMAR IF PT IS ABLE TO PASS SPEECH EVAL. ST LB, AT BEDSIDE COMPLETING EVAL CURRENTLY. TEMP BAINS PATENT/ DRAINING YELLOW URINE. SKIN CONDITION OVERALL POOR W/ RED RASH TO MOST OF BODY SURFACE NOW SLOUGHING. OVERALL IMPROVED, PER REPORT. NYSTATIN APPLIED TO EVAN AREA & FOLDS. DRESSING CHANGED TO GLUTEAL FOLD WOUND EARLY THIS AM BY HEARING OFFICER, WILL CHANGE THIS AFTERNOON UNLESS SOILED SOONER. DRESSING TO R ABD FOLD WILL ALSO BE CHANGED THIS SHIFT. Q2H REPOSITIONING TO PREVENT FURTHER SKIN BREAKDOWN. PROVIDERS Nina AGUIAR & EDDIE AT BEDSIDE THIS AM. THEY WOULD LIKE THE PT's HOME PSYCH MEDS TO BE RESTARTED IF HE IS ABLE TO TOLERATE PO INTAKE OF MEDS. WILL CONTINUE TO MONITOR & UPDATE NEEDED.
--- NOTE | 2020-12-19 13:00 | NUR ---
DRESSING CHANGE / UPDATE: PT HAS BEEN GIVEN A FULL BEDBATH & HAD ALL WOUND DRESSINGS CHANGED. WOUNDS CLEANSED W/ SPRAY WOUND VALVER, PACKED W/ CALCIUM ALGINATE & COVERED W/ FOAM CLOVER DRESSINGS. THE PT HAS TOLERATED THIS WELL & IS ABLE TO HELP SOMEWHAT W/ REPOSITIONING DURING THIS CARE. WHEN ROLLED ONTO R SIDE COMPLETELY, THE PT IS NOTED TO HAVE INCREASED ECTOPY & AN 8 BEAT RUN OF VT DURING THIS TIME. ECTOPY HAS COMPLETELY RESOLVED SINCE PT HAS BEEN TURNED LESS ON THAT SIDE.
--- NOTE | 2020-12-19 13:55 | NUR ---
CALL TO DR FLORENCE: CALL TO PROVIDER REGARDING PT's L GLUTEAL FOLD WOUND. BLACK TISSUE NOTED AT BORDER OF WOUND. WOUND APPEARANCE OVERALL IMPROVED, NOTED BY PHOTO DOCUMENTATION IN CHART & REPORT OF PRIOR RNs. DR FLORENCE STS THAT SHE WILL COME TO BEDSIDE THIS AFTERNOON & EVAL THE NEED FOR FURTHER DEBRIDEMENT.
--- NOTE | 2020-12-19 14:38 | NUR ---
DR AVALOS: PROVIDER AT BEDSIDE TO EVAL PT. ONE TIME DOSE OF HYDRALAZINE ORDERED FOR PERSISTANT HTN DESPITE PO SCHEDULED MEDS PER EMAR. SHE WOULD LIKE THE PRECEDEX TO BE TITRATED DOWN/OFF. 500 ML BOLUS OF D5W ORDERED, FOLLOWED BY D5W DRIP RATE INCREASED TO 125 ML/HR. ORDERS PLACED. PROVIDER STS OKAY TO RESUME SOME OF PT's HOME PSYCH MEDS ALSO, WILL PLACE ORDERS.
--- NOTE | 2020-12-19 14:45 | NUR ---
DR FLORENCE: PROVIDER AT BEDSIDE TO EVAL PT's GLUTEAL FOLD WOUND. SHE HAS COMPLETED A BRIEF BEDSIDE DEBRIDEMENT OF BLACK ESCHAR TISSUE. THE PT DENIES PAIN DURING THIS TIME. WOUND IS REPACKED W/ FRESH CALCIUM ALGINATE & A LARGE FOAM CLOVER DRESSING IS PLACED OVER THE WOUND.
--- NOTE | 2020-12-19 15:00 | NUR ---
DR URIAS: PROVIDER AT BEDSIDE TO EVAL PT. SHE WILL CONTINUE TO BE AVAILABLE BUT WILL NO LONGER BE SEEING THE PT DAILY R/T IMPROVING KIDNEY FUNCTION. SHE STS OKAY TO CONTINUE D5W @ 125 ML/HR R/T PT's HIGH SODIUM LEVEL, PO INTAKE OF WATER SHOULD BE ENCOURAGED ALSO. ALSO OKAY TO RESTART PT's COZAAR, ORDERS PLACED.
[2020-12-19 18:07] LABS: Bilirubin, Urine Neg (Neg); Blood, Urine 5+ (Neg); Glucose Qualitative, Urine 4+ (Neg); Ketones, Urine Neg (Neg); Leukocyte Esterase, Urine Neg (Neg); Nitrite, Urine Neg (Neg); Protein, Urine 2+ (Neg); Urobilinogen, Urine NORM (Normal)
--- NOTE | 2020-12-19 18:16 | NUR ---
SHIFT SUMMARY: NO ACUTE CHANGES SINCE PRIOR UPDATES. PT A&O TO SELF, SURROUNDINGS, FOLLOWING DIRECTIONS & FAMILY. HE HAS BEEN PLEASANT & COOPERATIVE W/ ALL CARE. HE IS STILL HAVING SOME VISUAL HALLUCINATIONS BUT IS NOW MORE REDIRECTABLE & UNDERSTANDING THAT THE OBJECTS IN THE ROOM ARE INANIMATE & THAT HE IS CONFUSED. LS ARE DIM T/O, PT ON 2L NC W/ O2 SATS > 92%. MONITOR SHOWS SR W/ HR 80-90s, HTN PERSISTANT, SCHEDULED MEDS PER EMAR. PT IS TOLERATING PO INTAKE WELL W/ MOD ASSIST DURING MEALS. HE IS WEAK & REQUIRES SOME HELP W/ FEEDING BUT IS SWALLOWING SAFELY & W/O DIFFICULTY. TEMP BAINS PATENT/ DRAINING PALE YELLOW URINE. SKIN CONDITION OVERALL POOR, UNCHANGED. DRESSINGS CDI AT THIS TIME & HAVE BEEN CHANGED NUMEROUS TIMES R/T PT's LIQUID STLS. RECTAL TUBE PLACED THIS AFTERNOON TO CONTAIN STL. WILL CONTINUE TO MONITOR & REPORT OFF TO ONCOMING RN.
[2020-12-19 18:21] LABS: Appearance, Urine Hazy (Clear); Color, Urine Pale Yellow (P-Yellow)
[2020-12-19 18:23] LABS: Red Blood Cells, Urine 25-50 /hpf (0-2); Squamous Epithelial Cells Not Seen /hpf (Few); White Blood Cells, Urine 0-2 /hpf (0-5)
[2020-12-19 18:24] LABS: Bacteria Few /hpf
[2020-12-19] MEDS ORDERED: Amphetamine Sal30 MG PO ×2 (19:44)
[2020-12-19] MEDS ORDERED: Vitamin B-121000 MCG PO ×2 (19:50)
[2020-12-19] MEDS ORDERED: HYDROCHLOROTH12.5 MG PO (19:51)
[2020-12-19] MEDS ORDERED: VITAMIN D5000 UNIT PO ×2 (19:58)
--- NOTE | 2020-12-19 20:00 | NUR ---
ASSUMING PT CARE: PT SITTING UP IN BED. AWAKENS WHEN STAFF ENTERS ROOM. APPROPRIATELY & PLEASANTLY INTERACTIVE. SLOW TO RESPOND, BUT ORIENTED x3. ABLE TO FOLLOW COMMANDS & WILLING TO PARTICIPATE IN CARE, ABLE TO SOMEWHAT D/T WEAKNESS. BRIDGETTE ENERGY TECHNICIAN STRENGTH WEAK BILATERALLY & EQUALLY TO ALL EXTREMITIES. PO FLUIDS ENCOURAGED & PROVIDED. REPOSITIONED & RECTAL TUBE FOUND TO BE LEAKING; DEFLATED, REPOSITIONED, RE-INFLATED & RE-SEATED IN THE RECTUM & LEAK PERSISTS. SKIN CLEANSED. LOTION & ADDITIONAL DRYFLOWs PLACED FOR INC SKIN PROTECTION. WILL REASSESS INDICATED. WILL CONTINUE TO MONITOR CLOSELY & REPORT APPROPRIATE.
[2020-12-19] MEDS ORDERED: PERCOCET 10-321 EAC4 PO ×2 (20:02)
--- NOTE | 2020-12-19 23:30 | NUR ---
UPDATE: US TECH @ BEDSIDE FOR RENAL US. PT STS HE TYPICALLY DOES NOT SLEEP WELL, EVEN @ HOME & TAKES HYDROXAZINE @ BEDTIME. PT ACCEPTS OFFER FOR ATIVAN FOR SLEEP. LIGHTS DIMMED & CALL LIGHT W/IN REACH.
--- NOTE | 2020-12-20 | NUR ---
HALLUCINATIONS: @ PT ROUNDING, PT OBSERVED TO HAVE AN UPWARD GAZE & NO LONGER MAKING EYE CONTACT W/ RN. WHEN ASKED IF HE WAS SEEING THINGS ON THE CEILING HE WAS LAST NIGHT, PT NODDED. STS "SEEING DR PEPPER ACROSS THE YARD THERE, RUNNING". RN REPEATED BACK TO PT & CLARIFIED IF THAT IS WHAT HE MEANT, PT NODS "YES". ATTEMPTED TO REORIENT PT, HOWEVER PT VERY DROWSY. LIGHTS DIMMED & CALL LIGHT W/ IN REACH.
[2020-12-20 04:42] LABS: BASOPHILS ABSOLUTE AUTO 0.09 K/mm3 (0.00-0.23); BASOPHILS PERCENT AUTO 1 % (0-2); EOSINOPHILS ABSOLUTE AUTO 0.49 K/mm3 (0.00-0.68); EOSINOPHILS PERCENT AUTO 3 % (0-6); Hematocrit 36.7 % (37.0-53.0); Hemoglobin 11.7 g/dL (13.5-17.5); IMMATURE GRAN ABSOLUTE AUTO 0.51 K/mm3 (0.00-0.10); IMMATURE GRAN PERCENT AUTO 3 % (0-1); LYMPHOCYTES PERCENT AUTO 9 % (21-46); MONOCYTES ABSOLUTE AUTO 1.02 K/mm3 (0.16-1.47); MONOCYTES PERCENT AUTO 6 % (4-13); Mean Corpuscular HGB Conc 31.9 g/dL (31.5-36.5); Mean Corpuscular Volume 97 fL (80-100); Mean Platelet Volume 9.2 fL (9.1-12.4); NEUTROPHILS ABSOLUTE AUTO 14.63 K/mm3 (1.96-9.15); NEUTROPHILS PERCENT AUTO 80 % (41-73); Platelet Count 276 K/mm3 (150-400); RDW Standard Deviation 50.6 fL (35.1-46.3); Red Blood Cell Count 3.77 M/mm3 (4.30-5.90); White Blood Cell Count 18.34 K/mm3 (4.00-11.30)
[2020-12-20 04:58] LABS: Bun/Creatinine Ratio 25.6 (12.0-20.0); Calcium, Blood 8.6 mg/dL (8.5-10.1); Creatinine, Blood 2.03 mg/dL (0.60-1.20); Potassium, Blood 3.9 mmol/L (3.5-5.5)
--- NOTE | 2020-12-20 06:00 | NUR ---
SHIFT SUMMARY: PT RESTING W/ EVEN & UNLABORED RR. REMAINS ON 2L/MIN VIA NC & SATS >95%. PT HAD 1 EPISODE OF CONFUSION W/ VISUAL HALLUCINATIONS LAST NIGHT WHICH OCCURRED SHORTLY AFTER RECEIVING ATIVAN. PT OTHERWISE RESTED WELL THROUGHOUT THE NIGHT, AWAKING FOR REPOSITIONING & CARE, W/ NO FURTHER CONFUSION. GIVEN PO FLUIDS OFTEN & REQUESTED, PT ABLE TO DRINK FROM WATER BOTTLE THOUGH STILL VERY WEAK. NO DYSPHAGIA. RECTAL TUBE APPEARS TO BE DRAINING WELL & W/OUT LEAKS. 3100ml URINE OUTPUT. WILL CONTINUE TO MONITOR UNTIL REPORT OFF TO ONCOMING RN.
--- NOTE | 2020-12-20 08:15 | NUR ---
ASSUMED CARE / DR Nina AGUIAR / DR MORGAN: REPORT RECEIVED FROM ALESHIA Vick RN. ASSUMED CARE OF THIS PT AT APPROX 0700. ON ASSESSMENT, THE PT IS AWAKE, ALERT & ORIENTED TO ALL. HE IS PLEASANT & COOPERATIVE, ABLE TO VERBALIZE UNDERSTANDING OF ALL EDUCATION PROVIDED & MAKE NEEDS KNOWN. LS ARE DIM IN BASES, PT ON 1L NC W/ O2 SATS > 92%. MONITOR SHOWS SR W/ HR 90s, HTN W/ SCHEDULED MEDS PER EMAR. PT HAS NO GI COMPLANTS & IS TOLERATING PO INTAKE WELL. HE HAS BEEN ABLE TO FEED HIMSELF W/ LESS ASSIST THIS AM. RECTAL TUBE REMAINS PATENT/ DRAINING YELLOW-MUCOID STLS. TEMP BAINS PATENT/ DRAINING PALE YELLOW URINE. SKIN CONDITION OVERALL POOR, MULTIPLE WOUNDS W/ CURRENT DRESSINGS CDI. THE PT IS OVERALL CLEAN, DRESSINGS WILL BE CHANGED THIS SHIFT DURING BED BATH OR SOONER IF SOILED. PROVIDERS Nina AGUIAR & EDDIE HAVE BEEN AT BEDSIDE THIS AM. THE PT IS NOW PCU STATUS. ORDERS FOR PHYSICAL & OCCUPATIONAL THERAPIES HAVE BEEN PLACED ALSO. PRN ATIVAN D/C'd FOR PT CONFUSION THAT REOCCURED AFTER DOSE LAST NIGHT. WILL CONTINUE TO MONITOR & UPDATE NEEDED.
--- NOTE | 2020-12-20 13:41 | NUR ---
WOUND CARE: CLEANSING OF WOUNDS HAS BEEN COMPLETED, PACKED W/ NEW CALCIUM ALGINATE & NEW FOAM CLOVER DRESSINGS PLACED TO L GLUTEAL TUNNELING WOUND. CALIUM ALGINATE REMOVED FROM R ABD WOUND & AREA CLEANSED. THIS AREA IS HEALING WELL & HAS NEW BEEFY/ PINK TISSUE NOTED. THIS WOUND HAS NOT BEEN PACKED W/ NEW ALGINATE & INSTEAD ONLY COVERED W/ SMALL FOAM CLOVER DRESSING.
[2020-12-20 14:10] LABS: ANA DIRECT Negative (Negative); ANTIMYELOPEROXIDASE (MPO) ABS <9.0 U/mL (0.0-9.0); ANTIPROTEINASE 3 (PR-3) ABS <3.5 U/mL (0.0-3.5); ATYPICAL PANCA <1:20 titer (Neg:<1:20); CYTOPLASMIC (C-ANCA) <1:20 titer (Neg:<1:20); PERINUCLEAR (P-ANCA) <1:20 titer (Neg:<1:20)
--- NOTE | 2020-12-20 18:13 | NUR ---
ASSUMED CARE ASSUMED CARE AT 1545. REPORT RECIEVED FROM ALLY DEGROOT. PT IS LAYING IN BED AWAKE, ALERT, AND ORIENTED. PT COMPLAINS OF SOME ANXIETY AT THIS TIME. PT DENIES PAIN OR DISCOMFORT. VITAL SIGNS STABLE. PICC TO LEONILA C/D/I. D5 INFUSING AT 75 ML/HR AND NS TKO. PT ON 2L O2 NC. WOUNDS NOTED. BAINS IN PLACE DRAINING LARGE AMOUNT OF CLEAR YELLOW URINE OUTPUT. PT SPOUSE AT BEDSIDE THIS AFTERNOON. PT TOLERATING PO DIET WELL. WILL CONTINUE TO MONITOR AND REPORT OFF TO ONCOMING RN.
--- NOTE | 2020-12-20 20:31 | NUR ---
Care Assumed 1899 Report recieved from ALLY Trammell. Pt resting in bed. A/O to being in hospital, states being at [facility] in [place], [place]. Able to state correct day/year but states the month as January. ON 2 L via NC, lung sounds clear/dim, SPO2 > 92%. NSR. Hypertensive SBP 160's, treated per emar. Pt denies having pain or itching at this time. Reddness and rash all over body. Pt has multiple wounds, dressing C/D/I. Rectal tube in place draining liquid yellow-mucous. Small amount of leakage around rectal tool cleaned. Pt able to help with turns. Pt tolerated taking PO meds well with small sips of liquid and sitting up 90 degrees. Temp thorpe in place, draining yellow/clear urine. Temp of 100.2. Call light within reach.
--- NOTE | 2020-12-21 00:05 | NUR ---
Pain and Anxiety Pt states having 8/10 throbbing pain on L glute, treated per emar. Pt also states feeling anxious. Pt states "Did I miss my breakfast" "That is why I was anxious." Provided pt with apple juice and apple sauce. Pt able to state being in [place], [place] but states being in [facility] and date as January 2021. Pt reoriented. Overall pt is calm and cooperative. VSS. NSR. Pt continues to be hypertensive SBP (150-160'S), treated per emar.
[2020-12-21 03:25] LABS: BASOPHILS ABSOLUTE AUTO 0.08 K/mm3 (0.00-0.23); BASOPHILS PERCENT AUTO 1 % (0-2); EOSINOPHILS ABSOLUTE AUTO 0.48 K/mm3 (0.00-0.68); EOSINOPHILS PERCENT AUTO 3 % (0-6); Hematocrit 37.9 % (37.0-53.0); Hemoglobin 12.2 g/dL (13.5-17.5); IMMATURE GRAN ABSOLUTE AUTO 0.46 K/mm3 (0.00-0.10); IMMATURE GRAN PERCENT AUTO 3 % (0-1); LYMPHOCYTES ABSOLUTE AUTO 1.75 K/mm3 (0.84-5.20); LYMPHOCYTES PERCENT AUTO 10 % (21-46); MONOCYTES ABSOLUTE AUTO 1.02 K/mm3 (0.16-1.47); MONOCYTES PERCENT AUTO 6 % (4-13); Mean Corpuscular HGB 30.8 pg (26.0-34.0); Mean Corpuscular HGB Conc 32.2 g/dL (31.5-36.5); Mean Corpuscular Volume 96 fL (80-100); Mean Platelet Volume 9.5 fL (9.1-12.4); NEUTROPHILS ABSOLUTE AUTO 13.92 K/mm3 (1.96-9.15); NEUTROPHILS PERCENT AUTO 79 % (41-73); Platelet Count 232 K/mm3 (150-400); RDW Coefficient Variation 13.8 % (11.7-14.2); RDW Standard Deviation 48.7 fL (35.1-46.3); Red Blood Cell Count 3.96 M/mm3 (4.30-5.90); White Blood Cell Count 17.71 K/mm3 (4.00-11.30)
[2020-12-21 03:43] LABS: Bun/Creatinine Ratio 20.2 (12.0-20.0); Calcium, Blood 8.8 mg/dL (8.5-10.1); Creatinine, Blood 1.93 mg/dL (0.60-1.20)
--- NOTE | 2020-12-21 05:25 | NUR ---
Shift Summary Pt A/O to being in [place], [place] and correct year. Continues to state that he is having pain around rectal tube and L glute, treated per emar. Rectal tube flushed and pulled out to check for leakage. Pt has frequent leaking around the rectal tube. Pt states pain has improved after rectal tube adjusted. Pt appears anxious and depressed at times. States he would like to get some sleep. Has not been able to rest t/o the night due to rectal tube leakage and frequent turns/adjustment. Continues to have loose mucous yellow/vinay stools. Temp thorpe in place draning to gravity. NSR. On 2 L via NC, SPO2 > 90%. Call light within reach. Will report to oncoming shift.
--- NOTE | 2020-12-21 08:30 | NUR ---
ASSUMED CARE / DR Nina AGUIAR / DR MORGAN: REPORT RECEIVED FROM HUBERT Kirkland RN. ASSUMED CARE OF THIS PT AT APPROX 0700. ON ASSESSMENT, THE PT IS AWAKE, A&O. HE IS PLEASANT & COOPERATIVE. HE STS FEELING MORE DEPRESSED, HOME MEDS HAVE BEEN RESTARTED & ENCOURAGEMENT PROVIDED THAT PT IS CONTINUING TO IMPROVE DAILY. LS ARE CLEAR, DIM IN BASES. PT ON 2L NC W/ O2 SATS > 92%. MONITOR SHOWS SR W/ HR 80s, BP STABLE. PT HAS NO GI COMPLAINTS, REQUESTS THAT RECTAL TUBE BE REMOVED R/T DISCOMFORT IT CAUSES. TEMP BAINS PATENT/ DRAINING YELLOW URINE. SKIN CONDITION OVERALL POOR, VARIOUS WOUNDS WILL BE CLEANSED & REDRESSED THIS SHIFT - SEE ASSESSMENT. PROVIDERS Nina AGUIAR & EDDIE AT BEDSIDE THIS AM TO EVAL PT. PROBIOTICS ORDERED & DR MORGAN HAS STATED THAT REMOVAL OF BAINS CATH WILL BE REEVALUATED TOMORROW THE PT CONTINUES TO HAVE POLYURIA & IS CURRENTLY NOT ABLE TO USE URINAL EFFECTIVELY. WILL CONTINUE TO MONITOR & UPDATE NEEDED.
--- NOTE | 2020-12-21 11:15 | NUR ---
ASSOCIATE DOCUMENTATION REVIEW: THIS RN HAS PERSONALLY REVIEWED DOCUMENTATION BY ASSOCIATE, REJI, TO DETERMINE ACCURACY. SMALL CHANGES MADE TO SHIFT ASSESSMENT & DOCUMENTED SUCH BY THIS RN, REVIEWED W/ ASSOCIATE FOR FUTURE DOCUMENTATION.
--- NOTE | 2020-12-21 15:24 | NUR ---
TRANSFER TO PCU: REPORT HAS BEEN GIVEN TO MARTÍN INSULATION WORKER APPRENTICE TO ASSUME CARE. THE PT's , STEPHANIE, IS AT BEDSIDE DURING THIS TIME & IS AWARE THAT PT WILL BE TRANSFERRING TO PCU-16. CHART, MEDS & ALL BELONGINGS HAVE BEEN TAKEN OUT W/ PT. PT TRANSFERRED VIA BED BY POORNIMA PRYOR, & MARYAM Gtz RN, AT APPROX 1525.
--- NOTE | 2020-12-21 19:43 | NUR ---
REPORT RECEIVED AT 1425 FROM ZANE, STEAM AND GAS TURBINE ASSEMBLER VIA PHONE. PT TRANSFERRED TO PCU AT 1538 VIA BED WITH MONITOR AND IV FLUIDS ACCOMPANIED BY STEAM AND GAS TURBINE ASSEMBLER AND TECH. PT TRANSFERRED TO TELEMETRY MONITORING.
--- NOTE | 2020-12-21 19:57 | NUR ---
PT TRANSFERRED TO UNIT AND RECEIVED ABX X2. PLAN IS TO CONTINUE TO WORK WITH PT AND PULL BAINS TOMORROW PENDING STRENGTH TO STAND AND VOID IN URINAL. PT REPORTED PAIN 1X AND RECEIVED ANALGESIA. PT DENIES ADDITIONAL COMPLAINTS AT THIS TIME.
--- NOTE | 2020-12-22 06:08 | NUR ---
SHIFT SUMMARY PT A&O X4. VSS. MONITOR SHOWING SB-SR, HR 50's-70's. SPO2 > 92% ON 2L NC, TITRATED TO RA THIS SHIFT W/ PT TOLERATING WELL. BRIGHT RED RASH SCATTERED T/O PT's BODY, NYSTATIN CREAM APPLIED PER EMAR. PT C/O 03/18 "BOTTOM" PAIN & REPORTS CHRONIC BACK PAIN, STATING "I DON'T NORMALLY SLEEP IN BED. I SLEEP IN A CHAIR." PT MEDICATED FOR PAIN PER EMAR W/ PRN IV FENTANYL X2 THIS SHIFT W/ PT REPORT OF IMPROVEMENT. PT W/ TEMP NARA, PATENT & DRAINING. PT QUESTIONS ABILITY TO REMOVE BAINS SOON. BAINS ORDER STATES FOR SKIN HEALING & HOURLY MONITORING. NO OTHER EVENTS OVER NIGHT. WILL CONTINUE TO MONITOR & PROVIDE CARE UNTIL REPORT OFF TO DAY SHIFT RN. PT REPORTS RECTUM "SORE" POST PREVIOUS RECTAL TUBE.
[2020-12-22 06:14] LABS: BASOPHILS PERCENT AUTO 1 % (0-2); EOSINOPHILS ABSOLUTE AUTO 0.45 K/mm3 (0.00-0.68); EOSINOPHILS PERCENT AUTO 3 % (0-6); Hematocrit 35.1 % (37.0-53.0); Hemoglobin 11.5 g/dL (13.5-17.5); IMMATURE GRAN ABSOLUTE AUTO 0.32 K/mm3 (0.00-0.10); IMMATURE GRAN PERCENT AUTO 2 % (0-1); LYMPHOCYTES ABSOLUTE AUTO 2.01 K/mm3 (0.84-5.20); LYMPHOCYTES PERCENT AUTO 15 % (21-46); MONOCYTES ABSOLUTE AUTO 0.92 K/mm3 (0.16-1.47); MONOCYTES PERCENT AUTO 7 % (4-13); Mean Corpuscular HGB 31.3 pg (26.0-34.0); Mean Corpuscular HGB Conc 32.8 g/dL (31.5-36.5); Mean Corpuscular Volume 96 fL (80-100); NEUTROPHILS ABSOLUTE AUTO 9.31 K/mm3 (1.96-9.15); NEUTROPHILS PERCENT AUTO 71 % (41-73); Platelet Count 196 K/mm3 (150-400); RDW Coefficient Variation 13.9 % (11.7-14.2); RDW Standard Deviation 49.1 fL (35.1-46.3); Red Blood Cell Count 3.67 M/mm3 (4.30-5.90); White Blood Cell Count 13.11 K/mm3 (4.00-11.30)
[2020-12-22 06:30] LABS: Bun/Creatinine Ratio 20.5 (12.0-20.0); Calcium, Blood 8.7 mg/dL (8.5-10.1); Creatinine, Blood 1.85 mg/dL (0.60-1.20); Potassium, Blood 3.7 mmol/L (3.5-5.5)
--- NOTE | 2020-12-22 19:41 | NUR ---
Pt's thorpe removed, voided 1x after pulling, pt reported nausea and received ondansetron, dressings changed and wounds cleansed, pt ambulated around room by PT, pt ate all meals up in the chair, and Pt reported no further concerns at this time. No changes to plan of care.
[2020-12-23 05:37] LABS: Calcium, Blood 8.5 mg/dL (8.5-10.1); Creatinine, Blood 1.9 mg/dL (0.60-1.20); Potassium, Blood 3.7 mmol/L (3.5-5.5)
--- NOTE | 2020-12-23 06:13 | NUR ---
SHIFT SUMMARY PT A&O X4. VSS. SPO2 > 92% ON RA. MONITOR SHOWING SB-SR, HR 50's-60's. RASH STILL NOTED T/O. PT REPORTS "IT DOESN'T LOOK ANY BETTER." PT DOES REPORT STRENGTH IMPROVING. PT 1 PERSON ASSIST W/ FWW TO BATHROOM. PT W/ 1 EPISODE OF URINARY URGENCY IN WHICH PT DIDN'T QUITE MAKE IT TO THE BATHROOM WHEN AMBULATING TO BATHROOM FOR URINATION. OTHERWISE, NO EVENTS OVER NIGHT. WILL CONTINUE TO MONITOR & PROVIDE CARE UNTIL REPORT OFF TO DAY SHIFT RN.
--- NOTE | 2020-12-23 10:49 | NUR ---
REPORT GIVEN TO ALLY WAYNE VIA PHONE AT 0905. PT TRANSFERRED AT 1008 WITH ABELARDO CANALES, VIA WHEELCHAIR ON TELEMETRY, ROOM AIR, AND NO FLUIDS INFUSING.
--- NOTE | 2020-12-23 17:39 | NUR ---
SHIFT SUMMARY PATIENT TRANSFERED TO THE FLOOR FROM THE PCU THIS MORNING. PATIENT ARRIVED VIA WHEELCHAIR. PATIENT TRANSFERED FROM WHEELCHAIR TO THE BED INDEPENDENTLY. PATIENT ALERT AND ORIENTED THIS SHIFT. PATIENT MEDICATED 1X FOR PAIN AT HIS WOUND IN THE L GLUTEAL FOLD. PATIENT MEDICATED 1X FOR ANXIETY PER EMAR. PATIENT'S SPOUSE IN THE ROOM THIS AFTERNOON. PATIENT'S SPOUSE ASSISTED PATIENT WITH SHOWER PER PATIENT'S REQUEST. WOUND DRESSING REAPPLIED AFTER SHOWER. PATIENT SITTING UP IN BED THROUGHOUT THE AFTERNOON WITH AT THE BEDSIDE.
[2020-12-24 06:22] LABS: Bun/Creatinine Ratio 16.7 (12.0-20.0); Calcium, Blood 8.2 mg/dL (8.5-10.1); Creatinine, Blood 1.68 mg/dL (0.60-1.20); Potassium, Blood 3.4 mmol/L (3.5-5.5)
--- NOTE | 2020-12-24 06:41 | NUR ---
SHIFT SUMMARY PATIENT ALERT AND ORIENTED. MEDICATED PER EMAR NEEDED FOR PAIN AND ANXIETY. DRESSING ON GLUTEAL WOUND BECAME SATURATED AND FELL OFF. WOUND CLEANED AND NEW DRESSING PLACED. PICC LINE PATENT AND FLUSHED. BED IN LOWEST POSITION WITH WHEELS LOCKED. CALL LIGHT WITHIN REACH. REPORT GIVEN TO ONCOMING RN.
--- NOTE | 2020-12-24 18:14 | NUR ---
SHIFT SUMMARY: NO ACUTE EVENTS. C/O PAIN IN L GLUTEAL WOUND; MEDICATED PER EMAR. ANXIOUS AT TIMES, ALSO MEDICATED PER EMAR. MOOD IMPROVES WHEN VISITS. L GLUTEAL WOUND DRESSED MORE THAN ONCE TODAY CALCIUM ALGINATE KEPT FALLING OUT EVERY TIME PT GOT UP TO AMBULATE. TELEMETRY D/C'D. APPETITE POOR. USING URINAL INDEPENDENTLY, UP TO BR WITH SBA. DEMONSTRATED DRESSING CHANGE TO ; SHE WILL NEED RX FOR DRESSING SUPPLIES BEFORE D/C TOMORROW. SHE IS ALSO ASKING ABOUT HOME ABX VS [facility]ION [facility], AND HOW LONG PT WILL NEED IV ABX. PLAN IS TO D/C HOME AFTER DAPTO IV TOMORROW AFTERNOON.
[2020-12-25 05:24] LABS: BASOPHILS ABSOLUTE AUTO 0.09 K/mm3 (0.00-0.23); BASOPHILS PERCENT AUTO 1 % (0-2); EOSINOPHILS ABSOLUTE AUTO 0.56 K/mm3 (0.00-0.68); EOSINOPHILS PERCENT AUTO 5 % (0-6); IMMATURE GRAN ABSOLUTE AUTO 0.22 K/mm3 (0.00-0.10); IMMATURE GRAN PERCENT AUTO 2 % (0-1); LYMPHOCYTES ABSOLUTE AUTO 1.93 K/mm3 (0.84-5.20); LYMPHOCYTES PERCENT AUTO 16 % (21-46); MONOCYTES ABSOLUTE AUTO 0.83 K/mm3 (0.16-1.47); MONOCYTES PERCENT AUTO 7 % (4-13); Mean Corpuscular HGB 31.7 pg (26.0-34.0); Mean Corpuscular HGB Conc 34.2 g/dL (31.5-36.5); Mean Corpuscular Volume 93 fL (80-100); Mean Platelet Volume 10.3 fL (9.1-12.4); NEUTROPHILS ABSOLUTE AUTO 8.54 K/mm3 (1.96-9.15); NEUTROPHILS PERCENT AUTO 70 % (41-73); Platelet Count 205 K/mm3 (150-400); RDW Coefficient Variation 13.6 % (11.7-14.2); RDW Standard Deviation 46.2 fL (35.1-46.3); White Blood Cell Count 12.17 K/mm3 (4.00-11.30)
[2020-12-25 05:45] LABS: Calcium, Blood 8.7 mg/dL (8.5-10.1); Creatinine, Blood 1.58 mg/dL (0.60-1.20); Potassium, Blood 3.7 mmol/L (3.5-5.5)
--- NOTE | 2020-12-25 05:50 | NUR ---
Shift Summary A/Ox4, pleasant and cooperative. Patient did not sleep well through the night. Was up in chair and tossing and turning self in bed feeling uncomfortable. Medicated x 3 for 6-810 pain with good effect. Oral intake is good. Dressing was saturated with drainage therefore it was changed tonight. Patient reports anxiety r/t discharging home and not knowing whether he can take care of himself. Medicated for anxiety x 1 this shift. No acute concerns or changes. WCTM.
--- NOTE | 2020-12-25 16:20 | NUR ---
PATIENT DISCHARGED TO HOME ACCOMPANIED BY . LEONILA PICC LINE REMOVED BY Kassie BOLDEN RN, TIP INTACT. PATIENT AND VERBALIZED UNDERSTANDING OF D/C INSTRUCTIONS. MASON WAS SHOWN TWICE HOW TO DO DRESSING CHANGE IN CASE DRESSING COMES OFF, WAS GIVEN SOME SUPPLIES TO LAST UNTIL PT SEES PCP THIS WEEK, WILL NEED TO GET RX FOR DRESSING SUPPLIES UNLESS HH TO PROVIDE. OFF UNIT VIA W/C AT 1616. NO BELONGINS LEFT BEHIND.
== END 2020-12-25 16:17 | disposition home health service (06) | DRG 853 ==
LOC: ER 00:42 → ICUW 04:00 → ICUE 04:00 → PCU 12-21 15:28 → MEDS 12-23 10:18 → ENPENDDIS 12-25 13:33 → MEDS 12-25 16:17
PROVIDERS: Emergency Medicine; Family Medicine; Internal Medicine; Internal Medicine Critical Care Medicine; Internal Medicine Infectious Disease; Internal Medicine Pulmonary Disease; Pharmacist; ADMIT Internal Medicine
PROC: 02HV33Z Insertion of Infusion Device into Superior Vena Cava, Percutaneous Approach (ICD-10-PCS; principal; 2020-12-10)
PROC: 0JB90ZZ Excision of Buttock Subcutaneous Tissue and Fascia, Open Approach (ICD-10-PCS; 2020-12-10)
PROC: 5A1955Z Respiratory Ventilation, Greater than 96 Consecutive Hours (ICD-10-PCS; 2020-12-10)
PROC: 0BH18EZ Insertion of Endotracheal Airway into Trachea, Via Natural or Artificial Opening Endoscopic (ICD-10-PCS; 2020-12-10)
PROC: 04HY32Z Insertion of Monitoring Device into Lower Artery, Percutaneous Approach (ICD-10-PCS; 2020-12-10)
PROC: 4A133B1 Monitoring of Arterial Pressure, Peripheral, Percutaneous Approach (ICD-10-PCS; 2020-12-10)
PROC: 4A133J1 Monitoring of Arterial Pulse, Peripheral, Percutaneous Approach (ICD-10-PCS; 2020-12-10)
PROC: 0BCB8ZZ Extirpation of Matter from Left Lower Lobe Bronchus, Via Natural or Artificial Opening Endoscopic (ICD-10-PCS; 2020-12-18)
PROC: 0BC88ZZ Extirpation of Matter from Left Upper Lobe Bronchus, Via Natural or Artificial Opening Endoscopic (ICD-10-PCS; 2020-12-18)
PROC: 0BC78ZZ Extirpation of Matter from Left Main Bronchus, Via Natural or Artificial Opening Endoscopic (ICD-10-PCS; 2020-12-18)
PROC: 0B9L8ZZ Drainage of Left Lung, Via Natural or Artificial Opening Endoscopic (ICD-10-PCS; 2020-12-18)
DX: A41.02 Sepsis due to Methicillin resistant Staphylococcus aureus (principal); G92 Toxic encephalopathy; R65.21 Severe sepsis with septic shock; J96.01 Acute respiratory failure with hypoxia; N17.0 Acute kidney failure with tubular necrosis; L02.31 Cutaneous abscess of buttock; L03.317 Cellulitis of buttock; Z68.43 Body mass index [BMI] 50.0-59.9, adult; E87.2 Acidosis; Z99.11 Dependence on respirator [ventilator] status; E87.0 Hyperosmolality and hypernatremia; I12.9 Hypertensive chronic kidney disease with stage 1 through stage 4 chronic kidney disease, or unspecified chronic kidney disease; M54.9 Dorsalgia, unspecified; E03.9 Hypothyroidism, unspecified; F41.9 Anxiety disorder, unspecified; F31.9 Bipolar disorder, unspecified; K21.9 Gastro-esophageal reflux disease without esophagitis; E87.6 Hypokalemia; M19.90 Unspecified osteoarthritis, unspecified site; L89.329 Pressure ulcer of left buttock, unspecified stage; E66.01 Morbid (severe) obesity due to excess calories; D63.1 Anemia in chronic kidney disease; G89.4 Chronic pain syndrome; N18.9 Chronic kidney disease, unspecified; L27.0 Generalized skin eruption due to drugs and medicaments taken internally; E83.51 Hypocalcemia; T36.8X5A Adverse effect of other systemic antibiotics, initial encounter; M48.00 Spinal stenosis, site unspecified; E05.00 Thyrotoxicosis with diffuse goiter without thyrotoxic crisis or storm; R45.1 Restlessness and agitation; Z98.84 Bariatric surgery status; Z98.890 Other specified postprocedural states; Z87.891 Personal history of nicotine dependence; Z79.899 Other long term (current) drug therapy; Z86.718 Personal history of other venous thrombosis and embolism
CPT/HCPCS: 31500; 36415; 36556; 36569; 36600; 36620; 51702; 71045; 71260; 73701; 76770; 80048; 80053; 80069; 80202; 81001; 82330; 82550; 82803; 82947; 83520; 83605; 83735; 83880; 84100; 84132; 84439; 84443; 84478; 84484; 85025; 85610; 85730; 86160; 86256; 87040; 87070; 87075; 87077; 87086; 87106; 87147; 87186; 87205; 92526; 92610; 93005; 93010; 94002; 94003; 94640; 94667; 96365-59; 96375-59; 96376; 97110; 97116; 97162; 97166; 97530; 97535; 99285-25; A9270; A9270-GY; C1751; C8929; C9113; J0171; J0330; J0360; J0610; J0692; J0878; J1200; J1450; J1644; J1720; J2060; J2250; J2405; J2543; J2704; J2920; J3010; J3370; J3475; J3480; J7030; J7040; J7050; J7060; J7070; P9046; Q9957; Q9967

== ENCOUNTER 2020-12-26 08:00 | Day surgery (SDC) | payer BC ==
[~2020-12-26 08:00] MED LIST changes: +Amphetamine Sal30 MG PO; +Buspirone HCl15 MG PO; +HYDROCHLOROTH12.5 MG PO; +NEURONTIN300 MG PO; +OMEP20ER PO; +OXYCODONE-ACET1 EAC2; +PERCOCET 10-321 EAC4 PO; +TAMSULOSIN HCL0.4 M1 PO; +TOPI100 PO; +Toprol Xl50 MG PO; +VITAMIN D5000 UNIT PO; +Vistaril50 MG PO; +Vitamin B-121000 MCG PO
== END 2020-12-26 23:59 | disposition home or self-care (01) ==
LOC: WOUND 08:00
DX: T81.30XA Disruption of wound, unspecified, initial encounter (principal); B95.62 Methicillin resistant Staphylococcus aureus infection as the cause of diseases classified elsewhere; I10 Essential (primary) hypertension; Z88.8 Allergy status to other drugs, medicaments and biological substances; Z87.891 Personal history of nicotine dependence; Z86.718 Personal history of other venous thrombosis and embolism
CPT/HCPCS: A9270; G0463

== ENCOUNTER 2020-12-28 00:38 | Day surgery (SDC) | payer BC ==
[2020-12-28] MEDS ORDERED: DESVENLAFAXINE100 M3 PO (16:21)
[2020-12-28] MEDS ORDERED: Amphetamine Sal20 MG PO (16:22)
[2020-12-28] MEDS ORDERED: Amphetamine Sal30 MG PO (16:22)
[2020-12-28] MEDS ORDERED: SYNTHROID PO (16:25)
[2020-12-28] MEDS ORDERED: LEVSOD112 PO (16:25)
== END 2020-12-28 22:50 | disposition home or self-care (01) ==
LOC: WOUND 00:38
DX: T81.30XA Disruption of wound, unspecified, initial encounter (principal)
CPT/HCPCS: G0463

== ENCOUNTER 2020-12-28 13:14 | Inpatient (IN) | payer MEDICARE, BC ==
[~2020-12-28] VITALS: Ht 182.9 cm; Wt 170.1 kg
[2020-12-28 14:37] LABS: BASOPHILS PERCENT AUTO 1 % (0-2); EOSINOPHILS ABSOLUTE AUTO 1.17 K/mm3 (0.00-0.68); EOSINOPHILS PERCENT AUTO 7 % (0-6); Hematocrit 33.6 % (37.0-53.0); IMMATURE GRAN PERCENT AUTO 1 % (0-1); LYMPHOCYTES ABSOLUTE AUTO 1.72 K/mm3 (0.84-5.20); LYMPHOCYTES PERCENT AUTO 11 % (21-46); MONOCYTES ABSOLUTE AUTO 1.09 K/mm3 (0.16-1.47); MONOCYTES PERCENT AUTO 7 % (4-13); Mean Corpuscular HGB 30.7 pg (26.0-34.0); Mean Corpuscular HGB Conc 32.7 g/dL (31.5-36.5); Mean Corpuscular Volume 94 fL (80-100); Mean Platelet Volume 10.8 fL (9.1-12.4); NEUTROPHILS ABSOLUTE AUTO 11.75 K/mm3 (1.96-9.15); NEUTROPHILS PERCENT AUTO 73 % (41-73); Platelet Count 279 K/mm3 (150-400); RDW Coefficient Variation 14.6 % (11.7-14.2); RDW Standard Deviation 50.3 fL (35.1-46.3); Red Blood Cell Count 3.58 M/mm3 (4.30-5.90); White Blood Cell Count 16.03 K/mm3 (4.00-11.30)
[2020-12-28 14:56] LABS: Albumin, Blood 3.1 g/dL (3.4-5.0); Albumin/Globulin Ratio 0.7 (0.8-1.8); Bilirubin, Total 0.5 mg/dL (0.1-1.0); Bun/Creatinine Ratio 4.3 (12.0-20.0); Calcium, Blood 8.4 mg/dL (8.5-10.1); Creatinine, Blood 8.28 mg/dL (0.60-1.20); Globulin, Blood 4.7 g/dL (2.2-4.0); Total Protein, Blood 7.8 g/dL (6.4-8.2)
[2020-12-28] MEDS ORDERED: DESVENLAFAXINE100 M3 PO (16:21)
[2020-12-28] MEDS ORDERED: Amphetamine Sal30 MG PO (16:22)
[2020-12-28] MEDS ORDERED: Amphetamine Sal20 MG PO (16:22)
[2020-12-28] MEDS ORDERED: SYNTHROID PO (16:25)
[2020-12-28] MEDS ORDERED: LEVSOD112 PO (16:25)
[2020-12-28 16:51] LABS: Source, Urine Catheter
[2020-12-28 17:09] LABS: Appearance, Urine Cloudy (Clear); Blood, Urine 2+ (Neg); Color, Urine Yellow (P-Yellow); Glucose Qualitative, Urine Neg (Neg); Ketones, Urine 1+ (Neg); Leukocyte Esterase, Urine 3+ (Neg); Nitrite, Urine Neg (Neg); Protein, Urine 3+ (Neg); Urobilinogen, Urine NORM (Normal)
[2020-12-28 17:21] LABS: Bilirubin, Urine 2+ (Neg)
[2020-12-28 17:24] LABS: White Blood Cells, Urine TNTC /hpf (0-5)
[2020-12-28 17:25] LABS: Bacteria Many /hpf; Squamous Epithelial Cells Rare /hpf (Few)
--- NOTE | 2020-12-28 21:00 | NUR ---
PT ADMITTED TO ICU 2 FROM EMERGENCY DEPARTMENT ARRIVING AT 2004. PT SLIDE TRANSFERRED TO BED FROM [facility]. PT ALERT AND ORIENTED. PLEASANT AND COOPERATIVE WITH CARE AND ASSESSMENT. PRESENT IN ROOM. PT GOOD HISTORIAN. ASSISTS IN ADMIT PROCESS. PT HAS APPROX 150 ML YELLOW URINE FROM BAINS. WILL REVIEW CHART AND PLAN OF CARE FOR THIS PT.
--- NOTE | 2020-12-29 | NUR ---
CALL MADE TO DR IRIZARRY CONCERNING BLOOD PRESSURES BEING LOW. BOLUS OF NORMAL SALINE ORDER RECEIVED AND THIS HAS BEEN DONE. BLOOD PRESSURES HAVE RESPONDED WELL TO BOLUS. PT REQUESTS AND RECEIVES SNACK THIS EVENING. NO COMPLAINTS OF NAUSEA. 20 G 10 CM POWER GLIDE PLACED IN LEFT UPPER ARM. WILL NOT DRAW BACK BLOOD THOUGH DOES INFUSE. WILL CONTINUE TO MONITOR.
[2020-12-29 06:11] LABS: BASOPHILS ABSOLUTE AUTO 0.05 K/mm3 (0.00-0.23); BASOPHILS PERCENT AUTO 1 % (0-2); EOSINOPHILS ABSOLUTE AUTO 1.09 K/mm3 (0.00-0.68); EOSINOPHILS PERCENT AUTO 10 % (0-6); Hematocrit 31.2 % (37.0-53.0); IMMATURE GRAN ABSOLUTE AUTO 0.11 K/mm3 (0.00-0.10); IMMATURE GRAN PERCENT AUTO 1 % (0-1); LYMPHOCYTES ABSOLUTE AUTO 0.88 K/mm3 (0.84-5.20); LYMPHOCYTES PERCENT AUTO 8 % (21-46); MONOCYTES ABSOLUTE AUTO 0.88 K/mm3 (0.16-1.47); MONOCYTES PERCENT AUTO 8 % (4-13); Mean Corpuscular HGB 31.2 pg (26.0-34.0); Mean Corpuscular HGB Conc 32.1 g/dL (31.5-36.5); Mean Corpuscular Volume 97 fL (80-100); Mean Platelet Volume 10.4 fL (9.1-12.4); NEUTROPHILS ABSOLUTE AUTO 7.46 K/mm3 (1.96-9.15); NEUTROPHILS PERCENT AUTO 71 % (41-73); Platelet Count 218 K/mm3 (150-400); RDW Coefficient Variation 14.7 % (11.7-14.2); RDW Standard Deviation 52.3 fL (35.1-46.3); Red Blood Cell Count 3.21 M/mm3 (4.30-5.90); White Blood Cell Count 10.47 K/mm3 (4.00-11.30)
[2020-12-29 06:34] LABS: Calcium, Blood 7.2 mg/dL (8.5-10.1); Creatinine, Blood 6.75 mg/dL (0.60-1.20); Magnesium, Blood 1.5 mg/dL (1.6-2.4); Potassium, Blood 3.5 mmol/L (3.5-5.5)
--- NOTE | 2020-12-29 06:57 | NUR ---
PT HAS HAD ADEQUATE OUTPUT FROM BAINS. HAS BEEN ABLE TO MOVE ABOUT BED ON HIS OWN. PT IS ABLE TO KEEP PRESSURE OFF LEFT BUTTOCK SECONDARY TO WOUND. HIS IS TO BRING IN HIS HOME WOUND VAC THIS DAY. PT'S BLOOD PRESSURES HAVE IMPROVED THIS MORNING. PT PLACED ON 1 LITER OXYGEN PER NASAL CANNULA FOR WHEN HE IS SLEEPING HIS SATURATIONS DROP INTO 80'S PERCENT. WITH EARLIER LOWER BLOOD PRESSURES, PT ASYMPTOMATIC. WILL CONTINUE TO MONITOR PT, AND WILL REPORT OFF TO ONCOMING RN.
--- NOTE | 2020-12-29 19:34 | NUR ---
SHIFT SUMMARY PT IS ALERT AND ORIENTEDx4. TOLERATED TO CHAIR AND SHORT ABULATIONS IN ROOM TODAY WITH WALKER AND 1 PERSON ASSIST. WOUND DRESSING CHANGED THIS AFTERNOON. VITALS HAVE REMAINED STABLE. ADEQUATE URINE OUTPUT TO BAINS CATH. IVF CONTINUE TO INFUSE. PT WAS STATUS CHANGED TO MEDICAL WITH TELEMETERY. TRANSFER OF CARE REPORT GIVEN TO MEDICAL FLOOR NURSE PRIOR TO CHANGE OF SHIFT. PT TRANSPORTED TO MEDICAL FLOOR VIA WHEELCHAIR BY PCT. VITALS STABLE TODAY. SINUS RHYTHM ON THE MONITOR.
--- NOTE | 2020-12-30 04:47 | NUR ---
SHIFT SUMMARY: PATIENT IS A&OX4, AMBULATES WITH STEADY GAIT AND SBA. HEART RATE INCREASES WITH ACTIVITY, UP TO 130 WHILE AMBULATING IN THE [place]. NO SOB, DENIES CHEST PAIN. RECOVERS TO BASELINE OF NSR 95 WITH IN 20 MINUTES. DRSG ON LEFT GLUTEAL AREA WAS SATURATED. WOUND WAS WASHED AND NEW DRESSING APPLIED PER WOUND CARE ORDERS. BAINS PUTS OUT LARGE AMOUNTS OF CLEAR YELLOW URINE.
[2020-12-30 06:08] LABS: Albumin, Blood 2.3 g/dL (3.4-5.0); Anion Gap 12 mmol/L (6-16); Blood Urea Nitrogen 26 mg/dL (8-24); Bun/Creatinine Ratio 7.7 (12.0-20.0); CO2, Blood 20 mmol/L (21-32); Calcium, Blood 7.4 mg/dL (8.5-10.1); Chloride, Blood 106 mmol/L (98-108); Creatinine, Blood 3.38 mg/dL (0.60-1.20); Glomerular Filtration Rate 21 (60-); Glucose, Blood 118 mg/dL (70-99); Phosphorus, Blood 4.5 mg/dL (2.5-4.9); Potassium, Blood 3.1 mmol/L (3.5-5.5); Sodium, Blood 138 mmol/L (136-145)
--- NOTE | 2020-12-30 16:59 | NUR ---
SHIFT SUMMARY. A&OX4, USES URINAL AT BEDSIDE. DRESSING TO BUTTOCK C/D/I. BAINS REMOVED THIS AFTERNOON, PT WAS ABLE TO SELF VOID 475 ML CLEAR YELLOW URINE WITHOUT ISSUE. PT DENIES PAIN, SOB, N/V. POTASSIUM REPLENISHED. MAINTENCE FLUIDS STARTED. DR. URIAS ROUNDED THIS AFTERNOON. AT BEDSIDE. NO OTHER CHANGES OR CONCERNS.
[2020-12-31 06:04] LABS: Bun/Creatinine Ratio 9.6 (12.0-20.0); Calcium, Blood 7.5 mg/dL (8.5-10.1); Creatinine, Blood 1.66 mg/dL (0.60-1.20); Magnesium, Blood 1.4 mg/dL (1.6-2.4); Potassium, Blood 3.2 mmol/L (3.5-5.5)
--- NOTE | 2020-12-31 06:06 | NUR ---
SHIFT SUMMARY: PATIENT ATTEMPTED TO GET TO THE BATHROOM AND BECAME TANGLED IN IV LINE. IV SITE WAS ACCIDENTALY PULLED OUT. PATIENT WAS INCONTINENT OF STOOL BECAUSE OF DELAY. DRESSING CHANGE TO LEFT GLUTEAL ARREA WAS CHANGED. LARGE AMOUNT OF DRAINAGE OBSERVED.
[2020-12-31] MEDS ORDERED: POTCHL20ER PO (14:20)
[2020-12-31] MEDS ORDERED: MAGNESIUM OXID500 MG PO (14:20)
[2020-12-31] MEDS ORDERED: VISBIOME 112.51 EACH PO (14:21)
[2020-12-31] MEDS ORDERED: CEPH500 PO (14:22)
--- NOTE | 2020-12-31 14:45 | NUR ---
DISCHARGE DISCHARGE MEDICATIONS AND INSTRUCTIONS EXPLAINED TO PATIENT AND PATIENT'S . THEY STATED UNDERSTANDING. PATIETN TO FOLLOW UP WITH PCP AN DR. URIAS. NEW LABS TO BE DRAWN ON SATURDAY AND SENT TO DR. URIAS. IV REMOVED WITHOUT DIFFICULTY. WOUND CARE COMPLETED. PATIENT TRANSFERED TO PRIVATE VEHICLE VIA WHEELCHAIR.
== END 2020-12-31 14:43 | disposition home health service (06) | DRG 871 ==
LOC: ER 13:14 → ICUE 17:31 → ERHOLD 17:31 → MEDS 17:31 → ICUE 20:05 → MEDS 12-29 18:27
PROVIDERS: Emergency Medicine; Family Medicine; Internal Medicine; ADMIT Internal Medicine
DX: A41.59 Other Gram-negative sepsis (principal); N17.0 Acute kidney failure with tubular necrosis; Z68.42 Body mass index [BMI] 45.0-49.9, adult; N39.0 Urinary tract infection, site not specified; L02.31 Cutaneous abscess of buttock; R65.20 Severe sepsis without septic shock; B96.1 Klebsiella pneumoniae [K. pneumoniae] as the cause of diseases classified elsewhere; I95.9 Hypotension, unspecified; E87.6 Hypokalemia; E83.42 Hypomagnesemia; E66.01 Morbid (severe) obesity due to excess calories; L27.1 Localized skin eruption due to drugs and medicaments taken internally; T36.8X5A Adverse effect of other systemic antibiotics, initial encounter; T46.5X5A Adverse effect of other antihypertensive drugs, initial encounter; K21.9 Gastro-esophageal reflux disease without esophagitis; I10 Essential (primary) hypertension; E03.9 Hypothyroidism, unspecified; F41.9 Anxiety disorder, unspecified; N40.0 Benign prostatic hyperplasia without lower urinary tract symptoms; F31.9 Bipolar disorder, unspecified; M54.9 Dorsalgia, unspecified; F90.9 Attention-deficit hyperactivity disorder, unspecified type; G89.29 Other chronic pain; D64.9 Anemia, unspecified; Z98.84 Bariatric surgery status; Z86.14 Personal history of Methicillin resistant Staphylococcus aureus infection; Z88.8 Allergy status to other drugs, medicaments and biological substances; Z79.899 Other long term (current) drug therapy; Z98.890 Other specified postprocedural states; Z87.891 Personal history of nicotine dependence; X58.XXXA Exposure to other specified factors, initial encounter
CPT/HCPCS: 36415; 51702; 51798; 71045; 76770; 80048; 80053; 80069; 81001; 82306; 82550; 83605; 83735; 84132; 84145; 84484; 85025; 87040; 87070; 87075; 87076; 87077; 87086; 87185; 87186; 87205; 93005; 93010; 96360-59; 96361-59; 97162; 97165; 97530; 99285-25; A9270; J0696; J0878; J1644; J2060; J3475; J3480; J7030; J7040; J7120

== ENCOUNTER 2021-01-02 00:34 | Day surgery (SDC) | payer BC ==
[~2021-01-02 00:34] MED LIST changes: +Amphetamine Sal20 MG PO; +CEPH500 PO; +DESVENLAFAXINE100 M3 PO; +MAGNESIUM OXID500 MG PO; +POTCHL20ER PO; +SYNTHROID PO; +VISBIOME 112.51 EACH PO
== END 2021-01-02 23:15 | disposition home or self-care (01) ==
LOC: WOUND 00:34
DX: S31.829D Unspecified open wound of left buttock, subsequent encounter (principal); B95.62 Methicillin resistant Staphylococcus aureus infection as the cause of diseases classified elsewhere; X58.XXXD Exposure to other specified factors, subsequent encounter
CPT/HCPCS: A9270

== ENCOUNTER 2021-01-11 01:02 | Day surgery (SDC) | payer BC | END 2021-01-11 23:14 | disposition home or self-care (01) | LOC: WOUND 01:02 | DX: S31.829A Unspecified open wound of left buttock, initial encounter (principal); B95.62 Methicillin resistant Staphylococcus aureus infection as the cause of diseases classified elsewhere; X58.XXXA Exposure to other specified factors, initial encounter | CPT/HCPCS: A9270 ==

== ENCOUNTER 2021-01-16 00:12 | Day surgery (SDC) | payer BC | END 2021-01-16 23:25 | disposition home or self-care (01) | LOC: WOUND 00:12 | DX: S31.829D Unspecified open wound of left buttock, subsequent encounter (principal); B95.62 Methicillin resistant Staphylococcus aureus infection as the cause of diseases classified elsewhere; X58.XXXD Exposure to other specified factors, subsequent encounter | CPT/HCPCS: A9270 ==

== ENCOUNTER 2021-01-25 03:48 | Day surgery (SDC) | payer BC | END 2021-01-25 22:53 | disposition home or self-care (01) | LOC: WOUND 03:48 | DX: S31.809D Unspecified open wound of unspecified buttock, subsequent encounter (principal); X58.XXXD Exposure to other specified factors, subsequent encounter; B95.62 Methicillin resistant Staphylococcus aureus infection as the cause of diseases classified elsewhere | CPT/HCPCS: A9270 ==

== ENCOUNTER 2021-01-30 00:22 | Day surgery (SDC) | payer BC | END 2021-01-30 23:03 | disposition home or self-care (01) | LOC: WOUND 00:22 | DX: T81.30XA Disruption of wound, unspecified, initial encounter (principal); B95.62 Methicillin resistant Staphylococcus aureus infection as the cause of diseases classified elsewhere | CPT/HCPCS: A9270 ==

== ENCOUNTER 2021-02-08 04:34 | Day surgery (SDC) | payer BC | END 2021-02-08 23:16 | disposition home or self-care (01) | LOC: WOUND 04:34 | DX: S31.829A Unspecified open wound of left buttock, initial encounter (principal); B95.62 Methicillin resistant Staphylococcus aureus infection as the cause of diseases classified elsewhere; X58.XXXA Exposure to other specified factors, initial encounter; Z88.8 Allergy status to other drugs, medicaments and biological substances | CPT/HCPCS: A9270 ==

== ENCOUNTER 2021-02-13 00:44 | Day surgery (SDC) | payer BC | END 2021-02-13 23:03 | disposition home or self-care (01) | LOC: WOUND 00:44 | DX: S31.809D Unspecified open wound of unspecified buttock, subsequent encounter (principal); X58.XXXD Exposure to other specified factors, subsequent encounter; B95.62 Methicillin resistant Staphylococcus aureus infection as the cause of diseases classified elsewhere | CPT/HCPCS: A9270 ==

== ENCOUNTER 2021-02-22 04:33 | Day surgery (SDC) | payer BC | END 2021-02-22 23:04 | disposition home or self-care (01) | LOC: WOUND 04:33 | DX: T81.30XA Disruption of wound, unspecified, initial encounter (principal); S31.819D Unspecified open wound of right buttock, subsequent encounter; X58.XXXD Exposure to other specified factors, subsequent encounter; B95.62 Methicillin resistant Staphylococcus aureus infection as the cause of diseases classified elsewhere; Z88.8 Allergy status to other drugs, medicaments and biological substances ==

== ENCOUNTER 2021-02-28 04:47 | Day surgery (SDC) | payer BC | END 2021-03-01 23:08 | disposition home or self-care (01) | LOC: WOUND 04:47 | DX: S31.809D Unspecified open wound of unspecified buttock, subsequent encounter (principal); X58.XXXD Exposure to other specified factors, subsequent encounter; B95.62 Methicillin resistant Staphylococcus aureus infection as the cause of diseases classified elsewhere | CPT/HCPCS: A9270 ==

== ENCOUNTER 2021-03-08 02:54 | Day surgery (SDC) | payer BC | END 2021-03-08 23:40 | disposition home or self-care (01) | LOC: WOUND 02:54 | DX: T81.30XA Disruption of wound, unspecified, initial encounter (principal); S31.809D Unspecified open wound of unspecified buttock, subsequent encounter; X58.XXXD Exposure to other specified factors, subsequent encounter; B95.62 Methicillin resistant Staphylococcus aureus infection as the cause of diseases classified elsewhere | CPT/HCPCS: A9270 ==

== ENCOUNTER 2021-03-23 00:41 | Day surgery (SDC) | payer BC | END 2021-03-23 23:17 | disposition home or self-care (01) | LOC: WOUND 00:41 | DX: T81.30XA Disruption of wound, unspecified, initial encounter (principal); S31.829D Unspecified open wound of left buttock, subsequent encounter; X58.XXXD Exposure to other specified factors, subsequent encounter; B95.62 Methicillin resistant Staphylococcus aureus infection as the cause of diseases classified elsewhere | CPT/HCPCS: A9270; G0463 ==

== ENCOUNTER → 2021-03-28 | Outpatient (CLI) | payer BC | END | disposition home or self-care (01) | LOC: LAB SHORT 10:45 → LAB 10:45 | DX: Z09 Encounter for follow-up examination after completed treatment for conditions other than malignant neoplasm (principal); Z86.14 Personal history of Methicillin resistant Staphylococcus aureus infection; Z87.2 Personal history of diseases of the skin and subcutaneous tissue | CPT/HCPCS: 87070; 87077; 87147; 87186; 87205 ==

== ENCOUNTER 2021-04-06 02:13 | Day surgery (SDC) | payer BC | END 2021-04-06 22:44 | disposition home or self-care (01) | LOC: WOUND 02:13 | DX: S31.829D Unspecified open wound of left buttock, subsequent encounter (principal); X58.XXXD Exposure to other specified factors, subsequent encounter; B95.62 Methicillin resistant Staphylococcus aureus infection as the cause of diseases classified elsewhere | CPT/HCPCS: A9270; G0463 ==

== ENCOUNTER 2021-04-20 08:00 | Day surgery (SDC) | payer BC | END 2021-04-20 23:59 | disposition home or self-care (01) | LOC: WOUND 08:00 | DX: T81.30XD Disruption of wound, unspecified, subsequent encounter (principal); Z86.14 Personal history of Methicillin resistant Staphylococcus aureus infection; Z88.8 Allergy status to other drugs, medicaments and biological substances | CPT/HCPCS: G0463 ==

== ENCOUNTER 2021-11-02 16:59 | Inpatient (IN) | payer MEDICARE, BC ==
[~2021-11-02] VITALS: Ht 180.3 cm; Wt 171.8 kg
[2021-11-02 18:54] LABS: Albumin, Blood 2.8 g/dL (3.4-5.0); Albumin/Globulin Ratio 0.5 (0.8-1.8); Bun/Creatinine Ratio 20.5 (12.0-20.0); Calcium, Blood 7.9 mg/dL (8.5-10.1); Creatinine, Blood 4.48 mg/dL (0.60-1.20); Globulin, Blood 5.1 g/dL (2.2-4.0); Potassium, Blood 6.8 mmol/L (3.5-5.5); Total Protein, Blood 7.9 g/dL (6.4-8.2)
[2021-11-02 19:13] LABS: BASOPHILS ABSOLUTE AUTO 0.05 K/mm3 (0.00-0.23); BASOPHILS PERCENT AUTO 0 % (0-2); EOSINOPHILS ABSOLUTE AUTO 0.17 K/mm3 (0.00-0.68); EOSINOPHILS PERCENT AUTO 2 % (0-6); Hematocrit 36.4 % (37.0-53.0); Hemoglobin 12.1 g/dL (13.5-17.5); IMMATURE GRAN ABSOLUTE AUTO 0.15 K/mm3 (0.00-0.10); IMMATURE GRAN PERCENT AUTO 1 % (0-1); LYMPHOCYTES ABSOLUTE AUTO 1.14 K/mm3 (0.84-5.20); LYMPHOCYTES PERCENT AUTO 10 % (21-46); MONOCYTES ABSOLUTE AUTO 1.35 K/mm3 (0.16-1.47); MONOCYTES PERCENT AUTO 12 % (4-13); Mean Corpuscular HGB 29.9 pg (26.0-34.0); Mean Corpuscular HGB Conc 33.2 g/dL (31.5-36.5); Mean Corpuscular Volume 90 fL (80-100); Mean Platelet Volume 10.3 fL (9.1-12.4); NEUTROPHILS PERCENT AUTO 75 % (41-73); Platelet Count 304 K/mm3 (150-400); RDW Standard Deviation 49.1 fL (35.1-46.3); Red Blood Cell Count 4.05 M/mm3 (4.30-5.90); White Blood Cell Count 11.46 K/mm3 (4.00-11.30)
[2021-11-02] MEDS ORDERED: ASPI81CH PO (22:23)
[2021-11-02 22:24] LABS: Albumin, Blood 2.9 g/dL (3.4-5.0); Anion Gap 16 mmol/L (6-16); Blood Urea Nitrogen 96 mg/dL (8-24); Bun/Creatinine Ratio 19.2 (12.0-20.0); CO2, Blood 17 mmol/L (21-32); Calcium, Blood 8.6 mg/dL (8.5-10.1); Chloride, Blood 99 mmol/L (98-108); Glomerular Filtration Rate 12 (60-); Glucose, Blood 92 mg/dL (70-99); Phosphorus, Blood 6.1 mg/dL (2.5-4.9); Potassium, Blood 3.7 mmol/L (3.5-5.5); Sodium, Blood 132 mmol/L (136-145)
[2021-11-02 22:45] LABS: Source, Urine Clean Catch
[2021-11-02 22:54] LABS: Bilirubin, Urine Neg (Neg); Blood, Urine 3+ (Neg); Glucose Qualitative, Urine Neg (Neg); Ketones, Urine 1+ (Neg); Leukocyte Esterase, Urine Neg (Neg); Nitrite, Urine Neg (Neg); Protein, Urine 2+ (Neg); Specific Gravity, Urine 1.015 (1.003-1.022); Urobilinogen, Urine NORM (Normal)
[2021-11-02 23:16] LABS: Appearance, Urine Hazy (Clear); Color, Urine Yellow (P-Yellow)
[2021-11-02 23:35] LABS: Amorphous Light (0-Heavy); Bacteria Few /hpf; Squamous Epithelial Cells Few /hpf (Few); White Blood Cells, Urine 0-2 /hpf (0-5)
[2021-11-03 02:36] LABS: Albumin, Blood 2.8 g/dL (3.4-5.0); Anion Gap 16 mmol/L (6-16); Blood Urea Nitrogen 98 mg/dL (8-24); Bun/Creatinine Ratio 19.9 (12.0-20.0); CO2, Blood 18 mmol/L (21-32); Calcium, Blood 8.3 mg/dL (8.5-10.1); Chloride, Blood 99 mmol/L (98-108); Creatinine, Blood 4.93 mg/dL (0.60-1.20); Glomerular Filtration Rate 13 (60-); Glucose, Blood 122 mg/dL (70-99); Phosphorus, Blood 6.6 mg/dL (2.5-4.9); Potassium, Blood 3.6 mmol/L (3.5-5.5); Sodium, Blood 133 mmol/L (136-145)
--- NOTE | 2021-11-03 04:04 | NUR ---
CALL CENTER SUPPORT CONSULTANT SUMMARY PATIENT WAS ADMITTED FROM THE ED, HE IS ALERT AN D ORIENTED. HE IS COOPERATIVE WITH CAR E. HE IS ABLE TO COMMUNICATE HIS NEEDS. ASSESSMENT AND V/S DONE AND RECORDED. STATED HE IS HURTING AND WANTED HIS HOME MED, ANXIETY MED AND ITCHING MED. GOT ORDERS FORM AND HE WAS MEDICATED PER ORDER. SEE EMAR
[2021-11-03 06:56] LABS: Albumin, Blood 2.8 g/dL (3.4-5.0); Anion Gap 13 mmol/L (6-16); Blood Urea Nitrogen 97 mg/dL (8-24); Bun/Creatinine Ratio 19.2 (12.0-20.0); CO2, Blood 20 mmol/L (21-32); Calcium, Blood 8.3 mg/dL (8.5-10.1); Chloride, Blood 100 mmol/L (98-108); Creatinine, Blood 5.06 mg/dL (0.60-1.20); Glomerular Filtration Rate 12 (60-); Glucose, Blood 125 mg/dL (70-99); Phosphorus, Blood 6.3 mg/dL (2.5-4.9); Potassium, Blood 3.3 mmol/L (3.5-5.5); Sodium, Blood 133 mmol/L (136-145)
[2021-11-03 07:31] LABS: Eosinophils-Raw #,Urine 0; White Blood Cells Urine 0-2 /hpf (0-5)
[2021-11-03 11:19] LABS: Albumin, Blood 2.7 g/dL (3.4-5.0); Anion Gap 10 mmol/L (6-16); Blood Urea Nitrogen 97 mg/dL (8-24); Bun/Creatinine Ratio 19.7 (12.0-20.0); CO2, Blood 22 mmol/L (21-32); Calcium, Blood 8.4 mg/dL (8.5-10.1); Chloride, Blood 100 mmol/L (98-108); Creatinine, Blood 4.92 mg/dL (0.60-1.20); Glomerular Filtration Rate 13 (60-); Glucose, Blood 127 mg/dL (70-99); Phosphorus, Blood 5.9 mg/dL (2.5-4.9); Potassium, Blood 3.3 mmol/L (3.5-5.5); Sodium, Blood 132 mmol/L (136-145)
[2021-11-03 14:34] LABS: Albumin, Blood 2.9 g/dL (3.4-5.0); Anion Gap 13 mmol/L (6-16); Blood Urea Nitrogen 96 mg/dL (8-24); Bun/Creatinine Ratio 19.6 (12.0-20.0); CO2, Blood 19 mmol/L (21-32); Calcium, Blood 8.5 mg/dL (8.5-10.1); Chloride, Blood 100 mmol/L (98-108); Creatinine, Blood 4.91 mg/dL (0.60-1.20); Glomerular Filtration Rate 13 (60-); Glucose, Blood 126 mg/dL (70-99); Phosphorus, Blood 6.3 mg/dL (2.5-4.9); Potassium, Blood 3.4 mmol/L (3.5-5.5); Sodium, Blood 132 mmol/L (136-145)
--- NOTE | 2021-11-03 17:08 | NUR ---
SHIFT SUMMARY PT AWAKE AT START OF SHIFT, SITTING UP TO EOB, SETTING OFF BED ALARM FREQUENTLY. PT RESTLESS AND WANTING TO GET UP. PT SOMEWHAT CONFUSED AND FORGETFUL, EVEN WITH FREQUENT REMINDERS. PT UNAWARE OF BAINS CATH AND ATTEMPTS TO WALK ACROSS RM WITHOUT TAKING IT WITH HIM. PT C/O ITCHING WHEN WAKING THIS AM; ADMITTED WITH SCRATCHES ALL OVER BODY. DR EASON NOTIFIED; BENEDRYL ORDERED AND GIVEN WITH RELIEF. PT LATER BECOMING VERY AGITATED AND UNCO-OP BEFORE LUNCH, WANTING TO GO OUTSIDE. PT WALKING ACROSS RM LEAVING BAINS HOOKED TO BED AND THEN PICKING BAG UP, HOLDING IT HIGH TRYING TO EMPTY URINE IN BAG BACK INTO BLADDER. ATTEMPTED TO EDUCATE PT, BUT PT REMAINED UNCO-OP AND CONTINUED TO HOLD BAG HIGH ENOUGH TO EMPTY BACK INTO BLADDER. PT ALSO PULLED OUT IV AND ATTEMPTED TO PULL OFF TELE WIRES. DR EASON NOTIFIED FOR ATARAX. PT CALMED AFTER BECOMING EFFECTIVE. PT RESTED QUIETLY FOR A WHILE. PT UP TO BTHRM AND C/O ITCHING AND STARTED SCRATCHING SCABS AGAIN. BENEDRYL GIVEN. BP ELEVATED THRU OUT THE DAY. DR EASON NOTIFIED FOR ADDITIONAL MEDS. ORDERED AND GIVEN. PT RESTING QUIETLY AT THIS TIME. AT BS VISITING. CALL LT IN REACH.
--- NOTE | 2021-11-03 17:45 | NUR ---
PATIENT INTIALLY WAS ORIENTED ONLY TO SELF AT SHIFT CHANGE AND IS NOW ORIENTED 4X BUT IS FORGETFUL AT TIMES. PATIENT IS EASILY REORIENTABLE AND HAS HAD SEVERE ANXIETY. PATIENT PULLED OUT IV AND TELEMETRY DUE TO ANXIETY. PATIENT IS NOW MORE AT EASE. PATIENT FOLLOWS COMMANDS.
--- NOTE | 2021-11-04 03:28 | NUR ---
COMMUNITY SERVICES MANAGER SUMMARY PATIENT HAD A FAIR SHIFT. HE IS AN ADMISSION FROM THE ED. HE IS ALERT AND ORIENTED. HIS ASSESSMENT DONE AND RECORDED. NO SKIN ISSUES NOTED. HE IS CIWA PROTOCOL. HE WAS STILL VERY ANXIOUS ON GETTING TO HIS ROOM, AND HIS MEDS WERE GIVEN ORDERED. HE LATER WAS ABLE TO SLEEP. HE DID NOT LODGE ANY OTHER COMPLAINTS. HIS ARE STABLE. WILL CONTINUE TO MONITOR HIM.
--- NOTE | 2021-11-04 03:35 | NUR ---
ASSISTANT PRODUCER SUMMARY PATIENT HAD A FAIR SHIFT. HE DID NOT LODGE ANY PROBLEM OVER NIGHT. HE WAS ABLE TO AMBULATE A LITTLE IN THE ROOM. V/S WERE CHECKED AND WERE STABLE. WILL CONTINUE TO MONITOR HIM.
[2021-11-04 05:20] LABS: BASOPHILS ABSOLUTE AUTO 0.03 K/mm3 (0.00-0.23); BASOPHILS PERCENT AUTO 0 % (0-2); EOSINOPHILS ABSOLUTE AUTO 0.34 K/mm3 (0.00-0.68); EOSINOPHILS PERCENT AUTO 4 % (0-6); Hematocrit 36.3 % (37.0-53.0); IMMATURE GRAN ABSOLUTE AUTO 0.13 K/mm3 (0.00-0.10); IMMATURE GRAN PERCENT AUTO 2 % (0-1); LYMPHOCYTES ABSOLUTE AUTO 1.07 K/mm3 (0.84-5.20); LYMPHOCYTES PERCENT AUTO 12 % (21-46); MONOCYTES ABSOLUTE AUTO 0.81 K/mm3 (0.16-1.47); MONOCYTES PERCENT AUTO 9 % (4-13); Mean Corpuscular HGB 29.5 pg (26.0-34.0); Mean Corpuscular HGB Conc 33.1 g/dL (31.5-36.5); Mean Corpuscular Volume 89 fL (80-100); Mean Platelet Volume 10.1 fL (9.1-12.4); NEUTROPHILS PERCENT AUTO 73 % (41-73); Platelet Count 281 K/mm3 (150-400); Red Blood Cell Count 4.07 M/mm3 (4.30-5.90); White Blood Cell Count 8.88 K/mm3 (4.00-11.30)
[2021-11-04 05:40] LABS: Albumin, Blood 2.8 g/dL (3.4-5.0); Anion Gap 11 mmol/L (6-16); Blood Urea Nitrogen 98 mg/dL (8-24); Bun/Creatinine Ratio 20.2 (12.0-20.0); CO2, Blood 22 mmol/L (21-32); Calcium, Blood 8.5 mg/dL (8.5-10.1); Chloride, Blood 101 mmol/L (98-108); Creatinine, Blood 4.86 mg/dL (0.60-1.20); Glomerular Filtration Rate 13 (60-); Glucose, Blood 167 mg/dL (70-99); Phosphorus, Blood 6.4 mg/dL (2.5-4.9); Potassium, Blood 3.4 mmol/L (3.5-5.5); Sodium, Blood 134 mmol/L (136-145)
[2021-11-04 13:15] LABS: Creatine Kinase MB 3.4 ng/mL (0.0-3.6); Creatine Kinase MB Index 1.6 (0.0-4.0)
[2021-11-04 15:22] LABS: Anion Gap 10 mmol/L (6-16); Blood Urea Nitrogen 101 mg/dL (8-24); Bun/Creatinine Ratio 23.6 (12.0-20.0); CO2, Blood 22 mmol/L (21-32); Calcium, Blood 8.7 mg/dL (8.5-10.1); Chloride, Blood 103 mmol/L (98-108); Creatinine, Blood 4.28 mg/dL (0.60-1.20); Glomerular Filtration Rate 15 (60-); Glucose, Blood 126 mg/dL (70-99); Phosphorus, Blood 5.8 mg/dL (2.5-4.9); Potassium, Blood 3.5 mmol/L (3.5-5.5); Sodium, Blood 135 mmol/L (136-145)
--- NOTE | 2021-11-04 16:10 | NUR ---
PATIENT WAS ABLE TO VOID 3 TIMES SINCE BAINS REMOVAL AT 1055AM. PVR DONE AT 1600 PATIENT VOIDED 350MLS AND AFTER ABOUT 6 BLADDER SCANS BY NURSE NO MORE THAN 21MLS WAS FOUND. PATIENT STATES HE DOSE NOT HAVE DESIRE TO PEE ANYMORE. URINE IS LIGHT YELLOW COLOR AND PATIENT IS A AND 0 4X.
--- NOTE | 2021-11-04 17:23 | NUR ---
DISCHARGE. PATIENT AND PRESENT FOR DISCHARGE INSTRUCTIONS. PATIENT AND SHOWN HIGHLIGHTED INFORMATION OF NEPHROLIGIST AND FAMILY PRACTICE. PATIENT TAUGHT WHEN TO FOLLOW UP AND TO SCHEDULE KIDNEY FUNCTION BLOOD WORK WITH DOCTOR MARIE PRIOR TO APPOINTMENT. PATIENT AND TUAHGT WHEN TO SEEK MEDICAL TREATMENT FOR RETENTION AND ALTER MENTAL STATUS. PATIENT SENT HOME WITH [facility] FOR SELF CATH AND TAUGHT TO CATH IF CANT VOID IN 6HRS. PATIENT AND TAUGHT HOW TO USE CATH KIT WITH STERILE TECHNIQUE WITH TEACHBACK. PATIENT AND GIVEN DISCHARE TEACHING AND TAUGHT ABOUT WHICH MEDICATION TO START TAKING AND WHICH MEDICATIONS TO STOP TAKING. PATIENT AND DEPARTED AT 1720 VIA PERSONAL VEHICLE.
== END 2021-11-04 17:26 | disposition home or self-care (01) | DRG 683 ==
LOC: ER 16:59 → MEDS 22:28
PROVIDERS: Family Medicine; Internal Medicine Nephrology; Physician Assistant; ADMIT Internal Medicine
DX: N17.9 Acute kidney failure, unspecified (principal); Z68.43 Body mass index [BMI] 50.0-59.9, adult; E87.1 Hypo-osmolality and hyponatremia; E87.2 Acidosis; E66.01 Morbid (severe) obesity due to excess calories; M54.9 Dorsalgia, unspecified; G89.29 Other chronic pain; M48.00 Spinal stenosis, site unspecified; I10 Essential (primary) hypertension; F31.9 Bipolar disorder, unspecified; K21.9 Gastro-esophageal reflux disease without esophagitis; R33.9 Retention of urine, unspecified; E87.6 Hypokalemia; E87.5 Hyperkalemia; F41.9 Anxiety disorder, unspecified; E03.9 Hypothyroidism, unspecified; Z88.8 Allergy status to other drugs, medicaments and biological substances; Z98.84 Bariatric surgery status; Z98.890 Other specified postprocedural states; Z87.891 Personal history of nicotine dependence; Z79.82 Long term (current) use of aspirin; Z79.899 Other long term (current) drug therapy
CPT/HCPCS: 36415; 51702; 71046; 76770; 80053; 80069; 81001; 82550; 82553; 82570; 83880; 83930; 83935; 84156; 84300; 84484; 85025; 87205; 93005; 93010; 96361-59; 96365-59; 96375-59; 99285-25; A9270; C8929; J0610; J1644; J1815; J7030; J7070; Q9957

== ENCOUNTER → 2022-02-06 | Outpatient (CLI) | payer MEDICARE, BC ==
[~2022-02-06] MED LIST changes: +ASPI81CH PO
== END | disposition home or self-care (01) ==
LOC: LAB 15:01 → LAB SHORT 15:01
DX: L72.3 Sebaceous cyst (principal)
CPT/HCPCS: 87070; 87077; 87147; 87186; 87205